=== PATIENT | male | born 1965 | race Caucasian/White ===

== ENCOUNTER 2020-12-06 17:22 | Emergency (ER) | payer MEDICAID, SELFPAY ==
--- NOTE | 2020-12-06 17:56 | ECG_ITS ---
[facility] Test Date: 2020-12-06 Pat Name: Martín Thorne Department: Room: Gender: Male Caddie: : 1965 Requested By: Martín Weeks Order Number: [id number] [place] MD: Mert Singh M.D. Measurements Intervals Williams Rate: 68 P: 64 GA: 190 QRS: 28 QRSD: 101 T: 44 QT: 344 QTc: 367 Interpretive Statements SINUS RHYTHM Compared to ECG 03/14/2016 22:05:47 No significant changes Electronically Signed On 12-08-2020 8:00:15 CDT by Mert Singh M.D. [id number]
--- NOTE | 2020-12-06 17:56 | XRR_ITS ---
PROCEDURE INFORMATION: Exam: XR Chest Exam date and time: 12/06/2020 6:17 PM Age: 55 years old Clinical indication: Chest pain; Additional info: Cp TECHNIQUE: Imaging protocol: XR of the chest. Views: 1 view. COMPARISON: CT chest w con* [id number] 05/14/2018 10:04 AM FINDINGS: Lungs: Minimal left basilar atelectasis. The lungs are otherwise clear. Pleural spaces: Unremarkable. No pleural effusion. No pneumothorax. Heart/Mediastinum: The cardiac shadow is normal in size. Bones/joints: No acute abnormality. XR/XR chest 1V portable [id number] IMPRESSION: Minimal left basilar atelectasis.
--- NOTE | 2020-12-06 18:00 | ED_ITS ---
HPI - Chest Pain General: Chief Complaint: Chest Pain Stated Complaint: CHEST PAIN Time Seen by Provider: 12/06/20 17:55 History of Present Illness: HPI narrative: Patient is a 55-year-old male who comes to the ED with chest pain. Patient says chest pain started today several hours ago while at rest. Says the chest pain radiates up into his neck bilaterally. Denies any previous chest pain episodes. Patient did say that he was getting stressed out today and is not sure if that could have been the cause. Patient says he has not taken any aspirin before coming to the ED. Denies any shortness of breath, nausea/vomiting, fever, chills, abdominal pain, bladder or bowel symptoms. Patient does also have some dental pain due to bad teeth on the right side upper and lower molars. Associated symptoms: Deny abdominal pain, dyspnea, fever(s), nausea, palpitations or vomiting Review of Systems Const: Denies: fever(s), chills or fatigue Eyes: Denies: change in vision or eye discomfort ENMT: Reports: dental pain (Right side upper and lower molars); Denies: throat pain, odynophagia, nasal discharge or nasal congestion Card: Reports: chest pain; Denies: palpitations, edema, swelling of feet/ankles, dyspnea on exertion or orthopnea Resp: Denies: dyspnea, productive cough or non-productive cough GI: Denies: abdominal pain, nausea, vomiting, diarrhea, constipation or h ematochezia : Denies: flank pain, difficulty urinating, dysuria or hematuria Musc: Denies: neck pain, back pain or extremity swelling Skin/Breast: Denies: rash or new lesions Neuro: Denies: headache(s), numbness in extremities or weakness in extremities Physical Exam Const: COMMON NORMALS: no acute distress, patient oriented x3, healthy appearing and alert GENERAL APPEARANCE: cooperative and comfortable HENMT: COMMON NORMALS: normocephalic HEAD & SCALP: normocephalic MOUTH: Normal oral and palatal mucosa present TEETH & GINGIVA: Yes caries (Multiple dental caries-extensive caries on tooth #3 tooth #30) and Yes poor dentition THROAT: posterior oropharynx normal and uvula midline Eye: COMMON NORMALS: Equal, round and reactive pupils present PUPIL: Yes Equal, round and reactive pupils present Neck/C-Spine: COMMON NORMALS: supple GENERAL: Yes normal visual inspection Resp: COMMON NORMALS: normal respiratory effort, No retractions, No use of accessory muscles and clear to auscultation bilaterally AUSCULTATION: clear to auscultation bilaterally Cardio: COMMON NORMALS: regular rate, regular rhythm, S1 normal heart sound present, S2 normal heart sound present, No gallops present (Cardio), No clicks present (Cardio), No murmurs present (Cardio) and Peripheral pulses 2+ throughout RATE: regular rate RHYTHM: regular rhythm HEART SOUNDS: S1 normal heart sound present and S2 normal heart sound present PERIPHERAL PULSES: Peripheral pulses 2+ throughout GI: COMMON NORMALS: Normal to inspection, nondistended, normoactive bowel sounds present, Soft to palpation, non-tender and no masses PALPATION: Yes Soft to palpation : COMMON NORMALS: Yes no CVA tenderness BLADDER/KIDNEY EXAM: Yes no CVA tenderness Back/Pelvis: COMMON NORMALS: no CVA tenderness Extremity: COMMON NORMALS: normal to inspection Neuro: COMMON NORMALS: patient oriented x3 and moves all extremities SENSORIUM/ORIENTATION: Yes alert Skin: GENERAL SKIN EXAM: dry skin Course ED course: Heart score 2- Low risk Vital Signs: Vital signs: Vital Signs Temperature 98.7 F 12/06/20 21:17 Pulse Rate 72 12/06/20 21:17 Respiratory Rate 16 12/06/20 21:17 Blood Pressure 138/65 12/06/20 21:17 Pulse Oximetry 97 12/06/20 21:17 MDM - Chest Pain MDM Narrative: Medical decision making narrative: Patient is a 55-year-old male comes to the ED with chest pain and dental pain. Exam showed a nontoxic appearing patient with poor dental hygiene and multiple dental caries. Rest of exam is benign. CBC and CMP were unremarkable. Troponin negative. BNP 49. EKG showed normal sinus rhythm with no ST segment elevation or depression seen. Chest x-ray showed no acute findings. Heart score of 2. Patient was given dose of aspirin, hydrocodone and symptoms resolved. Patient was also given dose of clindamycin as well for his dental pain. Patient diagnosed with noncardiac chest pain and dental pain due to dental caries. He was sent home with a prescription for clindamycin. Patient has a dental appointment on December 14. Return to ED precautions given. Patient understood and agreed with plan. Lab Data: Attestation: I reviewed the patient's lab results. Labs: Lab Results 12/06/20 12/06/20 12/06/20 Range/Units 18:24 18:24 18:24 WBC 7.6 (4.0-10.0) 10^3/ uL RBC 4.76 (4.1-5.3) 10^6/u L Hgb 14.4 (11.7-16.6) g/dL Hct 42.7 (42.0-52.0) % MCV 89.7 (80-94) fL MCH 30.3 (28.0-34.0) pg MCHC 33.7 (30.0-36.0) g/dL RDW 13.1 (12.1-15.1) % Plt Count 238 (130-400) 10^3/c mm MPV 9.6 (7.4-10.4) fL Neut % (Auto) 50.6 % Lymph % (Auto) 37.1 % Hartley % (Auto) 9.7 % Eos % (Auto) 1.6 % Baso % (Auto) 0.7 % Neut # (Auto) 3.87 (1.8-7.7) 10^3/u L Lymph # (Auto) 2.8 (0.8-4.8) 10^3/u L Hartley # (Auto) 0.7 (0.2-0.9) 10^3/u L Eos # (Auto) 0.1 (0.0-0.8) 10^3/u L Baso # (Auto) 0.1 (0.0-0.1) 10^3/u L Nucleated RBC % (a uto) 0 % Nucleated RBCs # 0.0 /100WBC Sodium 140 (136-145) mmol/L Potassium 4.2 (3.5-5.1) mmol/L Chloride 104 (98-107) mmol/L Carbon Dioxide 26 (22-29) mmol/L Anion Gap 14.2 (5-19) BUN 16 (6-20) mg/dL Creatinine 0.8 (0.7-1.2) mg/dL GFR Calculation 99.6 (90-130) mL/min Glucose 89 (65-115) mg/dL Calculated Osmolal ity 291 (285-295) mOsm/k g Calcium 8.7 (8.5-10.5) mg/dL Total Bilirubin 0.2 (0.15-1.2) mg/dL AST 14 (0-40) U/L ALT 11 (0-41) U/L Alkaline Phosphata se 115 (40-130) IU/L Troponin T Baselin e 6 (0-15) ng/L Troponin T 120 Min onofre (0-15) ng/L Delta Troponin T (0-10) ABS# NT-Pro-B Natriuret Pep 49 (0-125) pg/mL Total Protein 6.8 (6.6-8.7) g/dL Albumin 4.4 (3.5-5.2) g/dL Globulin 2.4 (1.3-4.6) g/dL 12/06/20 Range/Units 20:00 WBC (4.0-10.0) 10^3/ uL RBC (4.1-5.3) 10^6/u L Hgb (11.7-16.6) g/dL Hct (42.0-52.0) % MCV (80-94) fL MCH (28.0-34.0) pg MCHC (30.0-36.0) g/dL RDW (12.1-15.1) % Plt Count (130-400) 10^3/c mm MPV (7.4-10.4) fL Neut % (Auto) % Lymph % (Auto) % Hartley % (Auto) % Eos % (Auto) % Baso % (Auto) % Neut # (Auto) (1.8-7.7) 10^3/u L Lymph # (Auto) (0.8-4.8) 10^3/u L Hartley # (Auto) (0.2-0.9) 10^3/u L Eos # (Auto) (0.0-0.8) 10^3/u L Baso # (Auto) (0.0-0.1) 10^3/u L Nucleated RBC % (a uto) % Nucleated RBCs # /100WBC Sodium (136-145) mmol/L Potassium (3.5-5.1) mmol/L Chloride (98-107) mmol/L Carbon Dioxide (22-29) mmol/L Anion Gap (5-19) BUN (6-20) mg/dL Creatinine (0.7-1.2) mg/dL GFR Calculation (90-130) mL/min Glucose (65-115) mg/dL Calculated Osmolal ity (285-295) mOsm/k g Calcium (8.5-10.5) mg/dL Total Bilirubin (0.15-1.2) mg/dL AST (0-40) U/L ALT (0-41) U/L Alkaline Phosphata se (40-130) IU/L Troponin T Baselin e (0-15) ng/L Troponin T 120 Min onofre 6.13 (0-15) ng/L Delta Troponin T 0.13 (0-10) ABS# NT-Pro-B Natriuret Pep (0-125) pg/mL Total Protein (6.6-8.7) g/dL Albumin (3.5-5.2) g/dL Globulin (1.3-4.6) g/dL Imaging Data^: CXR: Attestation: I personally reviewed and interpreted this imaging study as fol lows: Radiologist's impression: [email or web address] [id number] XRay Report Signed Patient: Martín Thorne Unit #: [id number] : 1965 Age/Sex: 55 / M ADM Date: 12/06/20 Loc: ER Room/Bed: Attending Dr: Ordering Provider/Ordering MD: Martín Weeks Date of Service: 12/06/20 Procedure(s): XR chest 1V portable [id number] Accession Number(s): [id number] Report Number: [id number] PROCEDURE INFORMATION: Exam: XR Chest Exam date and time: 12/06/2020 6:17 PM Age: 55 years old Clinical indication: Chest pain; Additional info: Cp TECHNIQUE: Imaging protocol: XR of the chest. Views: 1 view. COMPARISON: CT chest w con* [id number] 05/14/2018 10:04 AM FINDINGS: Lungs: Minimal left basilar atelectasis. The lungs are otherwise clear. Pleural spaces: Unremarkable. No pleural effusion. No pneumothorax. Heart/Mediastinum: The cardiac shadow is normal in size. Bones/joints: No acute abnormality. XR/XR chest 1V portable [id number] IMPRESSION: Minimal left basilar atelectasis. Dictated By: Tyshawn Whipple Signed By: Tyshawn Whipple Signed Date/Time: 0 12/06/201853 DD/ 52 EKG Data^: EKG 1: Attestation: I personally reviewed and interpreted this EKG as follows: EKG interpretation date: 12/06/20 EKG interpretation time: 18:01 Interpretation: Normal sinus rhythm, 68 bpm, no ST segment elevation or depression seen. Discharge Plan Discharge Patient Disposition: Home Clinical Impression: Non-cardiac chest pain, Pain due to dental caries Condition: Stable Prescriptions: New clindamycin HCl 150 mg capsule 300 mg PO QID 7 Days Qty: 56 RF: 0 No Action levothyroxine 75 mcg tablet 75 mcg PO QAM RF: 0 gabapentin 800 mg tablet 800 mg PO TID RF: 0 trazodone 100 mg tablet 100 mg PO BEDTIME RF: 0 simvastatin 20 mg tablet 20 mg PO QAM RF: 0 mirtazapine 30 mg tablet 30 mg PO BEDTIME RF: 0 Discharge Orders: Discharge ED (Routine); Ordered 12/06/20 Ordered By: Martín Weeks Referrals: Georgette Lira DO [Primary Care Provider] - Discharge Diet: Regular Discharge Activity: Resume usual activity Patient Instructions: Dental Caries (ED), Noncardiac Chest Pain (ED) Activity Restrictions/Additional Instructions: Follow-up with medical provider as directed. Go to your scheduled dental appointment on December 14 to address dental pain issue. Take [id number] Tylenol or ibuprofen per bottle instructions for pain. Return to the ER or your medical provider if condition worsens. Please read and understand discharge instructions. Thank you for choosing [facility] for your healthcare needs today. Please realize this is an emergency room and that we are providing you with a medical screening exam and this may not be complete and all inclusive of all the testing and or work up that you may need to determine your ailment or severity of your illness. It is very important that you follow up as instructed or that you return to the Emergency Department should you have concerns or if your condition changes or worsens in any way. Coding Level of Care Code ED Mixing Machine Attendant for Chg Fwd Exam Comprehensive
[2020-12-06] MEDS: nicotine 21 mg Patch 1 PATCH TRANSDERMA (18:29)
[2020-12-06] MEDS: aspirin 81 mg Chew Tablet 324 MG PO (18:29)
[2020-12-06 18:30] LABS: Basophils # 0.1 10^3/uL (0.0-0.1); Basophils % 0.7 %; Eosinophils # 0.1 10^3/uL (0.0-0.8); Eosinophils % 1.6 %; Hematocrit 42.7 % (42.0-52.0); Hemoglobin 14.4 g/dL (11.7-16.6); Lymphocytes # 2.8 10^3/uL (0.8-4.8); Lymphocytes % 37.1 %; Mean Corpuscular HGB Conc 33.7 g/dL (30.0-36.0); Mean Corpuscular Hemoglobin 30.3 pg (28.0-34.0); Mean Corpuscular Volume 89.7 fL (80-94); Mean Platelet Volume 9.6 fL (7.4-10.4); Monocytes # 0.7 10^3/uL (0.2-0.9); Monocytes % 9.7 %; Neutrophils # 3.87 10^3/uL (1.8-7.7); Neutrophils % 50.6 %; Nucleated Red Blood Cells % 0 %; Platelet Count 238 10^3/cmm (130-400); Red Blood Count 4.76 10^6/uL (4.1-5.3); Red Cell Distribution Width 13.1 % (12.1-15.1); White Blood Count 7.6 10^3/uL (4.0-10.0)
--- NOTE | 2020-12-06 18:30 | PC.PHAR ---
pt states he gets the medications entered in long term-the copy and print associate with him states he is unsure what medications the pt takes
[2020-12-06 18:37] VITALS: BP 112/87; PULSE 70; RESP 18; O2SAT 96; BMI 28.1
[2020-12-06 18:53] LABS: Troponin(5th) Baseline 6 ng/L (0-15)
[2020-12-06 19:02] LABS: Alanine Aminotransferase 11 U/L (0-41); Albumin Level 4.4 g/dL (3.5-5.2); Alkaline Phosphatase 115 IU/L (40-130); Anion Gap 14.2 (5-19); Aspartate Amino Transferase 14 U/L (0-40); Blood Urea Nitrogen 16 mg/dL (6-20); Calcium 8.7 mg/dL (8.5-10.5); Carbon Dioxide 26 mmol/L (22-29); Chloride 104 mmol/L (98-107); Globulin 2.4 g/dL (1.3-4.6); Glomerular Filtration Rate 99.6 mL/min (90-130); Glucose 89 mg/dL (65-115); NT Pro B Type Natriuretic Pept 49 pg/mL (0-125); Osmolality Calculated 291 mOsm/kg (285-295); Potassium 4.2 mmol/L (3.5-5.1); Sodium 140 mmol/L (136-145); Total Bilirubin 0.2 mg/dL (0.15-1.2); Total Protein 6.8 g/dL (6.6-8.7)
[2020-12-06 20:29] LABS: Troponin 5 2HR 6.13 ng/L (0-15); Troponin 5 2HR Delta 0.13 ABS# (0-10)
[2020-12-06] MEDS: clindamycin 150 mg Capsule 300 MG PO (20:36)
[2020-12-06] MEDS: HYDROcodone-acetaminophen 5-325 mg Tablet 1 TAB PO (20:39)
[2020-12-06 20:43] VITALS: BP 146/98; PULSE 63; PULSE 69; RESP 16; TEMP 36.4; O2SAT 97
[2020-12-06 21:17] VITALS: BP 138/65; PULSE 72; RESP 16; TEMP 37.1; O2SAT 97
== END 2020-12-06 21:15 | disposition home or self-care (01) ==
PROVIDERS: Emergency Provider Physician Assistant; PCP Family Medicine
DX: R07.89 Other chest pain (principal); K02.9 Dental caries, unspecified
CPT/HCPCS: 36415; 71045; 80053; 83880; 84484; 85025; 93005; 99284

== ENCOUNTER 2023-05-18 14:54 | Emergency (ER) | payer MEDICAID, SELFPAY ==
[2023-05-18 15:03] VITALS: BP 120/74; PULSE 79; RESP 17; TEMP 36.5; O2SAT 95; BMI 27.9
--- NOTE | 2023-05-18 15:14 | ED_ITS ---
HPI - Dental/Oral General: Chief complaint: Dental/Oral Stated complaint: teeth hurt Time Seen by Provider: 05/18/23 15:10 History of Present Illness: 57-year-old male patient comes in today for complaints of left upper dental pain. Patient reports a loose tooth and multiple caries. Over the last 2 to 3 days he has had worsening pain and discomfort and unable to sleep at night. Patient appears nontoxic. Patient does take mirtazapine and levothyroxine routinely. Review of Systems General: Reports: 10 or more systems reviewed and unremarkable except in HPI and below ENMT: Reports: dental pain Card: Denies: chest pain Resp: Denies: dyspnea Musc: Denies: neck pain or back pain PFS ED PFSH: Medical History (Updated 05/18/23 @ 15:21 by CHUCHO Salgado) Anxiety Chronic leg pain Depression Fatigue High cholesterol History of hepatitis C Hypothyroid Mechanical complication internal fixation device like nail, plate, jennifer Psychiatric care Family History (Updated 05/16/23 @ 14:59 by Cinda Mckeon LPN) Father Bladder cancer Mother Leukemia Social History (Updated 05/16/23 @ 15:00 by Cinda Mckeon LPN) Smoking and tobacco/nicotine status: current every day tobacco/nicotine user Quit status (tobacco/nicotine): not considering quitting Second hand smoke exposure: No Alcohol intake: former Substance/Drug Use: former Physical Exam Const: COMMON NORMALS: alert HENMT: COMMON NORMALS: normocephalic HEAD & SCALP: normocephalic MOUTH: other (Port dentition, multiple caries, loose teeth) TEETH & GINGIVA: Yes abnormal tooth and associated gingiva (Redness of the gingiva and loose tooth cuspid left upper), Yes caries and Yes poor dentition Neck/C-Spine: COMMON NORMALS: full ROM Resp: COMMON NORMALS: normal respiratory effort Extremity: COMMON NORMALS: normal to inspection Neuro: SENSORIUM/ORIENTATION: Yes alert Skin: COMMON NORMALS: turgor normal GENERAL SKIN EXAM: turgor normal Course Vital Signs: Vital signs: Vital Signs Temperature 97.7 F 05/18/23 15:03 Pulse Rate 77 05/18/23 15:23 Respiratory Rate 18 05/18/23 15:23 Blood Pressure 124/85 05/18/23 15:23 Pulse Oximetry 95 05/18/23 15:23 Oxygen Delivery Me thod Room Air 05/18/23 15:23 MDM - Dental/Oral Medical Decision Making 57-year-old male patient comes in today with dental pain. On exam patient has multiple decayed and loose teeth. Patient reports a cuspid in the left upper jaw that is loose with surrounding gingival erythema and swelling. Differential diagnosis includes dental abscess, dental carry, dental pain, malingering, retropharyngeal abscess. No signs of serious illness or injury is noted. Posterior pharynx is normal. Vital signs are normal. Reviewed exam with patient with recommendations for treatment and follow-up. Patient reported understanding and agreed to plan. Patient was strongly encouraged to follow-up with dentist for definitive care. No radiology studies performed this visit Discharge Plan Discharge Patient Disposition: Home Clinical Impression: Toothache, Dental caries Condition: Stable Prescriptions: New clindamycin HCl 300 mg capsule 300 mg PO Q6H 7 Days Qty: 28 0RF hydrocodone-acetaminophen 5-325 mg tablet 1 tab PO Q8H PRN (Reason: pain (scale score 7-10)) Qty: 7 0RF No Action gabapentin 300 mg capsule 300 mg PO TID Qty: 90 1RF mirtazapine 30 mg tablet 30 mg PO .q hs Qty: 30 1RF levothyroxine 75 mcg tablet 75 mcg PO QAM simvastatin 20 mg tablet 20 mg PO QAM Discharge Orders: Discharge ED (Routine); Ordered 05/18/23 Ordered By: Tanner Steinberg Referrals: Georgette Lira DO [Primary Care Provider] - Discharge Diet: Usual diet Discharge Activity: Increase activity as tolerated Patient Instructions: Toothache (ED), Opioid Safety Activity Restrictions/Additional Instructions: Home and rest. Take medications as directed. Follow-up with dentist for definitive care. Use acetaminophen and ibuprofen for control of pain. Use hydrocodone for severe pain. Return to ER for new concerns. Coding Level of Care Code ED Clerical Secretary for Shannan Shelton
[2023-05-18 15:23] VITALS: BP 124/85; PULSE 77; RESP 18; O2SAT 95
[2023-05-18 15:35] VITALS: BP 124/85; PULSE 77; RESP 18; O2SAT 95
== END 2023-05-18 15:37 | disposition home or self-care (01) ==
PROVIDERS: Emergency Provider Nurse Practitioner Family; PCP Family Medicine
DX: K02.9 Dental caries, unspecified (principal); K08.89 Other specified disorders of teeth and supporting structures; Z86.19 Personal history of other infectious and parasitic diseases; F17.210 Nicotine dependence, cigarettes, uncomplicated
CPT/HCPCS: 99283

== ENCOUNTER → 2023-06-05 14:34 | Outpatient (BNVA) | payer MEDICAID, SELFPAY | PROVIDERS: PCP Family Medicine; Visit Provider Psychiatry & Neurology Psychiatry | DX: F11.20 Opioid dependence, uncomplicated (principal); Z79.899 Other long term (current) drug therapy | CPT/HCPCS: 80307 ==

== ENCOUNTER → 2023-07-04 13:32 | Outpatient (BNVA) | payer MEDICAID, SELFPAY | PROVIDERS: PCP Family Medicine; Visit Provider Family Medicine Adult Medicine | DX: Z00.00 Encounter for general adult medical examination without abnormal findings (principal); Z86.19 Personal history of other infectious and parasitic diseases; E03.9 Hypothyroidism, unspecified; F41.9 Anxiety disorder, unspecified; F32.A Depression, unspecified; R25.1 Tremor, unspecified; E78.00 Pure hypercholesterolemia, unspecified; M79.606 Pain in leg, unspecified; G89.29 Other chronic pain; F13.21 Sedative, hypnotic or anxiolytic dependence, in remission; F33.2 Major depressive disorder, recurrent severe without psychotic features | CPT/HCPCS: 80053; 84443; 85025; G0103 ==

== ENCOUNTER → 2023-07-09 15:41 | Outpatient (BNVA) | payer MEDICAID, SELFPAY | PROVIDERS: PCP Family Medicine; Visit Provider Psychiatry & Neurology Psychiatry | DX: F32.A Depression, unspecified (principal); Z79.899 Other long term (current) drug therapy; F11.20 Opioid dependence, uncomplicated; F15.21 Other stimulant dependence, in remission | CPT/HCPCS: 80307 ==

== ENCOUNTER → 2023-08-08 15:24 | Outpatient (BNVA) | payer MEDICAID, SELFPAY | PROVIDERS: PCP Family Medicine; Visit Provider Psychiatry & Neurology Psychiatry | DX: F11.20 Opioid dependence, uncomplicated (principal); Z79.899 Other long term (current) drug therapy; F13.21 Sedative, hypnotic or anxiolytic dependence, in remission; F15.21 Other stimulant dependence, in remission; F12.20 Cannabis dependence, uncomplicated | CPT/HCPCS: 80307 ==

== ENCOUNTER → 2023-09-05 15:01 | Outpatient (BNVA) | payer MEDICAID, SELFPAY | PROVIDERS: PCP Family Medicine; Visit Provider Psychiatry & Neurology Psychiatry | DX: F11.20 Opioid dependence, uncomplicated (principal); Z79.899 Other long term (current) drug therapy; F13.21 Sedative, hypnotic or anxiolytic dependence, in remission; F15.21 Other stimulant dependence, in remission; F12.20 Cannabis dependence, uncomplicated; F32.A Depression, unspecified; F41.1 Generalized anxiety disorder; F33.2 Major depressive disorder, recurrent severe without psychotic features | CPT/HCPCS: 80307 ==

== ENCOUNTER 2023-09-14 13:16 | Outpatient (CLI) | payer MEDICAID, SELFPAY ==
--- NOTE | 2023-09-14 13:27 | CT_ITS ---
WS: [id number] LDCT LUNG CANCER SCREENING HISTORY: HX OF TOBACCO USE/NICOTINE DEPENDENCE,CIGARETTES TECHNIQUE: Axial imaging performed from the apices to 1 cm below the costophrenic angles. Coronal and sagittal reformats are submitted with axial MIP series. All CT scans at [facility] use at least one of these dose optimization techniques: automated exposure control; mA and/or kV adjustment per patient size (includes targeted exams where dose is matched to clinical indication); or iterativ e reconstruction. DLP: 75.57 mGy.cm DIvol: Mean CTDIvol: 1.40 (mGy) COMPARISON: None available. Diagnostic quality: Satisfactory Lungs: Less than 3 mm noncalcified nodule RIGHT apex. Less than 3 mm nodule, image 136 series 4 on th e LEFT. Additional 4 mm nodule in the anterior RIGHT upper lobe, image 139 series 4. Very thin linear atelectasis or scar at the LEFT costophrenic angle. No endobronchial lesions. Heart: Normal size heart with no pericardial effusion.. Other findings: No mediastinal or hilar adenopathy. Normal size aorta. Small hiatal hernia. No adrena l mass. Mild increase severe compression deformity of what I believe is T5 or T6. No retropulsion. Th is does not appear acute. IMPRESSION: CT/CT lung screening [id number] LUNG-RADS: 2-Benign Appearance or Behavior FOLLOW UP: 12 Month: Continue annual screening with LDCT OTHER FINDINGS (S MODIFIER): None.
== END 2023-09-14 13:17 | disposition home or self-care (01) ==
LOC: RAD 13:17
PROVIDERS: PCP Nurse Practitioner Family; Visit Provider Nurse Practitioner Family
DX: Z12.2 Encounter for screening for malignant neoplasm of respiratory organs (principal); Z87.891 Personal history of nicotine dependence; R91.8 Other nonspecific abnormal finding of lung field
CPT/HCPCS: 71271

== ENCOUNTER → 2023-10-02 15:12 | Outpatient (BNVA) | payer MEDICAID, SELFPAY | PROVIDERS: PCP Family Medicine; Visit Provider Psychiatry & Neurology Psychiatry | DX: F11.20 Opioid dependence, uncomplicated (principal); F12.20 Cannabis dependence, uncomplicated; F15.21 Other stimulant dependence, in remission; Z79.899 Other long term (current) drug therapy; F33.2 Major depressive disorder, recurrent severe without psychotic features; F41.1 Generalized anxiety disorder; F13.21 Sedative, hypnotic or anxiolytic dependence, in remission | CPT/HCPCS: 80307 ==

== ENCOUNTER → 2023-11-15 15:07 | Outpatient (BNVA) | payer MEDICAID, SELFPAY | PROVIDERS: PCP Family Medicine; Visit Provider Psychiatry & Neurology Psychiatry | DX: F32.A Depression, unspecified (principal); F11.20 Opioid dependence, uncomplicated; F12.20 Cannabis dependence, uncomplicated; F15.21 Other stimulant dependence, in remission; F13.21 Sedative, hypnotic or anxiolytic dependence, in remission; Z79.899 Other long term (current) drug therapy; F41.1 Generalized anxiety disorder; F33.2 Major depressive disorder, recurrent severe without psychotic features | CPT/HCPCS: 80053; 80164; 80307; 84443; 85025 ==

== ENCOUNTER → 2024-01-09 10:09 | Outpatient (BNVA) | payer OTHER, SELFPAY | PROVIDERS: PCP Family Medicine; Visit Provider Psychiatry & Neurology Psychiatry | DX: F41.9 Anxiety disorder, unspecified (principal); F33.2 Major depressive disorder, recurrent severe without psychotic features; Z79.899 Other long term (current) drug therapy | CPT/HCPCS: 80061; 83036 ==

== ENCOUNTER 2024-02-15 11:13 | Emergency (ER) | payer MEDICAID, SELFPAY ==
[2024-01-17 10:12] VITALS: BP 114/72; BMI 28.8
[2024-02-15 11:21] VITALS: BP 164/73; PULSE 85; RESP 18; TEMP 36.4; O2SAT 95; BMI 28.3
[2024-02-15 12:02] LABS: Basophils % 0.4 %; Eosinophils % 0.2 %; Hematocrit 45.8 % (37-53); Lymphocytes # 1.4 10^3/uL (0.8-4.8); Mean Corpuscular HGB Conc 33.6 g/dL (30-55); Mean Corpuscular Hemoglobin 31.9 pg (27-33); Mean Corpuscular Volume 94.8 fl (82-101); Mean Platelet Volume 9.9 fL (7.4-10.4); Monocytes # 0.4 10^3/uL (0.2-0.9); Monocytes % 9.5 %; Neutrophils # 2.71 10^3/uL (1.8-7.7); Neutrophils % 58.7 %; Nucleated Red Blood Cells % 0 %; Platelet Count 193 10^3/cmm (157-399); Red Blood Count 4.83 10^6/uL (3.85-5.65); Red Cell Distribution Width 13.2 % (12.1-15.1); White Blood Count 4.62 10^3/uL (3.29-11.43)
[2024-02-15 12:19] LABS: Alanine Aminotransferase 11 U/L (0-41); Albumin Level 4.3 g/dL (3.5-5.2); Alkaline Phosphatase 95 U/L (40-130); Anion Gap 14.7 (5-19); Aspartate Amino Transferase 16 U/L (0-40); Blood Urea Nitrogen 19 mg/dL (8-23); Calcium 9.2 mg/dL (8.5-10.5); Carbon Dioxide 25 mmol/L (22-29); Chloride 105 mmol/L (98-107); Creatinine Clr Calc Pharmacy 122.6286; Globulin 3.3 g/dL (1.3-4.6); Glucose 110 mg/dL (65-115); Lipase 14 U/L (13-60); Osmolality Calculated 293 mOsm/kg (285-295); Potassium 4.7 mmol/L (3.5-5.1); Sodium 140 mmol/L (136-145); Total Bilirubin 0.2 mg/dL (0.15-1.2); Total Protein 7.6 g/dL (6.6-8.7)
--- NOTE | 2024-02-15 12:39 | W.ED.ABDPA2 ---
HPI - Abdominal Pain General: Chief Complaint: Abdominal Pain Stated Complaint: N/V, low abd pain Time Seen by Provider: 02/15/24 11:23 Source: patient Mode of arrival: ambulatory Limitations: no limitations History of Present Illness: Patient is a 58-year-old male who presents to ED today with a complaint of feeling nauseous and decreased appetite over the past 3 to 5 days. Patient states he has not had any vomiting. He states he just does not have an appetite to eat much. He attributes this to increased stress. He states occasionally he will have what he describes as spasms to the right side of his abdomen. No previous abdominal surgeries. He is reporting normal bowel movements. He is not complaining of dysuria, frequency, urgency, or hematuria. No flank pain. MD elicited complaint: abdominal pain and other (nausea, decreased appetite ) Pertinent past history: other (hepatitis C) Onset (ago): day(s) Pain Consistency: intermittent Location: RUQ and RLQ Severity: mild Quality: other (spasming) Radiation: none Migration to: no migration Exacerbating factors: other (he thinks stress) Relieving factors: nothing Associated Symptoms: Reports nausea; Denies change in bowel habits, chills, diarrhea, dysuria, fever(s), hematochezia, hematuria, hematemesis, melena and vomiting Review of Systems Const: Denies: fever(s), chills, body aches, fatigue or malaise Eyes: Denies: yellow eyes ENMT: Denies: throat pain, odynophagia or hoarseness Card: Denies: chest pain Resp: Denies: dyspnea GI: Reports: abdominal pain and nausea; Denies: vomiting, hematemesis, diarrhea, change in bowel habits, hematochezia or melena : Denies: flank pain, dysuria or hematuria Musc: Denies: back pain or extremity pain Skin/Breast: Denies: rash Neuro: Denies: headache(s), dizziness or confusion PFSH ED PFSH: Medical History Shakiness Healthcare maintenance Severe benzodiazepine use disorder in sustained remission Dental caries History of hepatitis C High cholesterol Depression Anxiety Fatigue Hypothyroid Chronic leg pain Mechanical complication internal fixation device like nail, plate, jennifer Psychiatric care Pain due to dental caries Family History Father Bladder cancer Mother Leukemia Social History Smoking and tobacco/nicotine status: current every day tobacco/nicotine user Quit status (tobacco/nicotine): not considering quitting Second hand smoke exposure: No Alcohol intake: former Substance/Drug Use: former Adopted: No Caregiver/support person: No Lives independently: Yes Housing: Apartment Marital status: Number of children: 1 Number of grandchildren: 0 Highest education level completed: GED or Equivalent service: No Current occupational status: disabled Pets and animals: No Leisure activites: other Leisure activities details: work out and watch TV Sexually active: No Do you think of yourself as: Straight/Heterosexual Current gender identity: Male Estella/Religious: [employer] Special estella needs: No Agree to transfusion: Yes Physical Exam Const: COMMON NORMALS: no acute distress, patient oriented x3, no limitations, alert and well nourished GENERAL APPEARANCE: cooperative ORIENTATION/CONSCIOUSNESS: Yes awake, Yes oriented to person, Yes oriented to place and Yes oriented to time Eye: COMMON NORMALS: no scleral icterus Resp: COMMON NORMALS: normal respiratory effort Cardio: COMMON NORMALS: regular rate and regular rhythm RATE: regular rate RHYTHM: regular rhythm GI: COMMON NORMALS: Normal to inspection, nondistended, normoactive bowel sounds present, Soft to palpation, non-tender, No hepatosplenomegaly present and no masses INSPECTION: Yes normal to inspection AUSCULTATION: Yes normoactive bowel sounds PALPATION: Yes Soft to palpation, No Tenderness to palpation present (GI), No Guarding due to palpation present (GI), No Rigid due to palpation and Yes No hepatosplenomegaly present : COMMON NORMALS: Yes no CVA tenderness BLADDER/KIDNEY EXAM: Yes no CVA tenderness Back/Pelvis: COMMON NORMALS: no CVA tenderness and thoracic and lumbar spine normal to inspection Extremity: GENERAL: Yes normal exam except as noted Neuro: HCRISTA COMA SCALE: document GCS findings Christa coma scale eye opening: Spontaneous Christa coma scale verbal response: Orientated [place] coma scale motor response: Obey commands Christa coma scale total score: 15 COMMON NORMALS: patient oriented x3, moves all extremities, no focal motor deficits and no sensory deficits noted SENSORIUM/ORIENTATION: Yes alert, Yes oriented to person, Yes oriented to place and Yes oriented to time Skin: COMMON NORMALS: no rashes or lesions noted GENERAL SKIN EXAM: no rashes or lesions noted Course Vital Signs: Vital signs: Vital Signs Temperature 97.6 F 02/15/24 11:21 Pulse Rate 65 02/15/24 13:30 Respiratory Rate 18 02/15/24 11:21 Blood Pressure 121/71 02/15/24 13:30 Pulse Oximetry 97 02/15/24 13:30 Oxygen Delivery Me thod Room Air 02/15/24 13:30 MDM - Abdominal Pain Medical Decision Making Patient appears in no acute distress. His vital signs are stable. Blood work/urine is completely unremarkable. CT scan showing no acute abnormality. He will be allowed discharge with return precautions. Otherwise I would like him to follow up with primary care. Differential Diagnosis Likely abdominal pain, acute appendicitis, constipation, diverticulitis, gastroenteritis and pancreatitis Medical Records I reviewed the patient's medical records. Lab Data I reviewed the patient's lab results. 02/15/24 11:57 02/15/24 11:57 Labs/Radiology: Radiology Impressions Abdomen/Pelvis CT 02/15/24 12:48 IMPRESSION: No acute subdiaphragmatic pathology. Laboratory Results WBC 4.62 10^3/uL (3.29-11.43) 02/15/24 11:57 RBC 4.83 10^6/uL (3.85-5.65) 02/15/24 11:57 Hgb 15.40 g/dL (11.27-16.99) 02/15/24 11:57 Hct 45.8 % (37-53) 02/15/24 11:57 MCV 94.8 fl (82-101) 02/15/24 11:57 MCH 31.9 pg (27-33) 02/15/24 11:57 MCHC 33.6 g/dL (30-55) 02/15/24 11:57 RDW 13.2 % (12.1-15.1) 02/15/24 11:57 Plt Count 193 10^3/cmm (157-399) 02/15/24 11:57 MPV 9.9 fL (7.4-10.4) 02/15/24 11:57 Neut % (Auto) 58.7 % 02/15/24 11:57 Lymph % (Auto) 31.0 % 02/15/24 11:57 Mitchell % (Auto) 9.5 % 02/15/24 11:57 Eos % (Auto) 0.2 % 02/15/24 11:57 Baso % (Auto) 0.4 % 02/15/24 11:57 Neut # (Auto) 2.71 10^3/uL (1.8-7.7) 02/15/24 11:57 Lymph # (Auto) 1.4 10^3/uL (0.8-4.8) 02/15/24 11:57 Mitchell # (Auto) 0.4 10^3/uL (0.2-0.9) 02/15/24 11:57 Eos # (Auto) 0.0 10^3/uL (0.0-0.8) 02/15/24 11:57 Baso # (Auto) 0.0 10^3/uL (0.0-0.1) 02/15/24 11:57 Nucleated RBC % (auto) 0 % 02/15/24 11:57 Nucleated RBCs # 0.0 /100WBC 02/15/24 11:57 Sodium 140 mmol/L (136-145) 02/15/24 11:57 Potassium 4.7 mmol/L (3.5-5.1) 02/15/24 11:57 Chloride 105 mmol/L (98-107) 02/15/24 11:57 Carbon Dioxide 25 mmol/L (22-29) 02/15/24 11:57 Anion Gap 14.7 (5-19) 02/15/24 11:57 BUN 19 mg/dL (8-23) 02/15/24 11:57 Creatinine 0.7 mg/dL (0.7-1.2) 02/15/24 11:57 GFR Calculation 115.0 mL/min (90-130) 02/15/24 11:57 Glucose 110 mg/dL (65-115) 02/15/24 11:57 Calculated Osmolality 293 mOsm/kg (285-295) 02/15/24 11:57 Calcium 9.2 mg/dL (8.5-10.5) 02/15/24 11:57 Total Bilirubin 0.2 mg/dL (0.15-1.2) 02/15/24 11:57 AST 16 U/L (0-40) 02/15/24 11:57 ALT 11 U/L (0-41) 02/15/24 11:57 Alkaline Phosphatase 95 U/L (40-130) 02/15/24 11:57 Total Protein 7.6 g/dL (6.6-8.7) 02/15/24 11:57 Albumin 4.3 g/dL (3.5-5.2) 02/15/24 11:57 Globulin 3.3 g/dL (1.3-4.6) 02/15/24 11:57 Lipase 14 U/L (13-60) 02/15/24 11:57 Urine Color Yellow (Yellow) 02/15/24 12:40 Urine Appearance Clear (CLEAR) 02/15/24 12:40 Urine pH 5 (5-7) 02/15/24 12:40 Ur Specific [place] 1.020 (1.005-1.030) 02/15/24 12:40 Urine Protein Neg (Negative) 02/15/24 12:40 Urine Glucose (UA) Norm (Normal) 02/15/24 12:40 Urine Ketones 1+ (Negative) H 02/15/24 12:40 Urine Blood Neg (Negative) 02/15/24 12:40 Urine Nitrate Negative (Negative) 02/15/24 12:40 Urine Bilirubin Neg (Negative) 02/15/24 12:40 Urine Urobilinogen Neg mg/dL (Negative) 02/15/24 12:40 Ur Leukocyte Esterase Negative (Negative) 02/15/24 12:40 All radiology interpretation(s) finalized by discharge Discharge Plan Discharge Patient Disposition: Home Clinical Impression: Nausea, Decreased appetite Condition: Stable Prescriptions: No Action clonazepam [Klonopin] 0.5 mg tablet 0.5 mg PO BID levothyroxine 75 mcg tablet 75 mcg PO QAM Qty: 90 3RF buprenorphine-naloxone 8-2 mg film 1 film sublingual BID Qty: 60 2RF divalproex [Depakote ER] 500 mg tablet extended release 24 hr 500 mg PO BID Qty: 60 2RF simvastatin 20 mg tablet 20 mg PO QAM gabapentin 600 mg tablet 600 mg PO TID tamsulosin 0.4 mg capsule 0.4 mg PO BEDTIME mirtazapine 30 mg tablet 30 mg PO BEDTIME Discharge Orders: Discharge ED (Routine); Ordered 02/15/24 Ordered By: Vale Morales Referrals: Doc Roy MD [Primary Care Provider] - Activity Restrictions/Additional Instructions: As we discussed I would like you to follow-up with your primary care provider next week if symptoms persist. As we discussed you may return to the emergency department for any new or concerning symptoms. Coding Level of Care Code ED Lcac Operator for Shannan Shelton
--- NOTE | 2024-02-15 12:48 | CTR_ITS ---
PROCEDURE INFORMATION: Exam: CT Abdomen And Pelvis With Contrast Exam date and time: 02/15/2024 1:08 PM Age: 58 years old Clinical indication: Abdominal tenderness and nausea; Abdominal pain; Generalized; Additional info: Abdominal pain, nausea, dec appetite TECHNIQUE: Imaging protocol: Computed tomography of the abdomen and pelvis with contrast. Radiation optimization: All CT scans at this facility use at least one of these dose optimization techniques: automated exposure control; mA and/or kV adjustment per patient size (includes targeted exams where dose is matched to clinical indication); or iterative reconstruction. Contrast material: OMNIPAQUE 350; Contrast volume: 100 ml; Contrast route: INTRAVENOUS (IV); COMPARISON: CR XR hip LT 2-3V wo/w pel* [id number] 10/30/2018 4:28 PM RADIATION DOSE METRICS: Total DLP (mGy-cm): 689.34 FINDINGS: Liver: Normal. No mass. Gallbladder and biliary ducts: Normal. No calcified stones. No ductal dilation. Pancreas: Normal. No ductal dilation. Spleen: Normal. No splenomegaly. Adrenal glands: Normal. No mass. Kidneys and ureters: Nonobstructing left renal calculus. Stomach and bowel: Unremarkable. No obstruction. No mucosal thickening. Appendix: No evidence of appendicitis. Intraperitoneal space: Unremarkable. No free air. No significant fluid collection. Vasculature: Unremarkable. No abdominal aortic aneurysm. Lymph nodes: Unremarkable. No enlarged lymph nodes. Urinary bladder: Unremarkable as visualized. Reproductive: Unremarkable as visualized. Bones/joints: Bilateral L5 spondylolysis with minimal spondylolisthesis. ORIF of each femur. No Soft tissues: Unremarkable. CT/CT abdomen pelvis w con* [id number] IMPRESSION: No acute subdiaphragmatic pathology.
[2024-02-15 12:57] VITALS: BP 115/77; PULSE 75; O2SAT 100
[2024-02-15] MEDS: iohexol 350 mg/mL 500 mL Btl (per mL) IV (13:02)
[2024-02-15] MEDS: ondansetron 2 mg/ML SDV 2 mL 4 MG IVP (13:26)
[2024-02-15 13:28] LABS: Add Urine Microscopic? NO; Charge for UA Resulting for Rev
[2024-02-15 13:30] VITALS: BP 121/71; PULSE 65; O2SAT 97
[2024-02-15 13:59] LABS: Bilirubin Urine Neg (Negative); Blood Urine Neg (Negative); Glucose Urine UA Norm (Normal); Ketones Urine 1+ (Negative); Leukocyte Esterase Urine Negative (Negative); Nitrate Urine Negative (Negative); Protein Urine Neg (Negative); Urine Appearance Clear (CLEAR); Urine Color Yellow (Yellow); Urobilinogen Urine Neg (Negative); pH Urine 5 (5-7)
[2024-02-15 14:17] VITALS: BP 110/66; PULSE 62; O2SAT 96
== END 2024-02-15 14:19 | disposition home or self-care (01) ==
PROVIDERS: Emergency Provider Physician Assistant; PCP Psychiatry & Neurology Psychiatry
DX: R11.0 Nausea (principal); R63.0 Anorexia; Z72.0 Tobacco use; Z86.19 Personal history of other infectious and parasitic diseases
CPT/HCPCS: 36415; 74177; 80053; 81003; 83690; 85025; 96374; 99285; J2405; Q9967

== ENCOUNTER → 2024-04-04 10:19 | Outpatient (BNVA) | payer MEDICAID, SELFPAY ==
[2024-01-17 10:12] VITALS: BP 114/72; BMI 28.8
== END ==
PROVIDERS: PCP Psychiatry & Neurology Psychiatry; Referring Provider Family Medicine; Visit Provider Surgery
DX: R11.0 Nausea (principal); R10.9 Unspecified abdominal pain; Z12.11 Encounter for screening for malignant neoplasm of colon
CPT/HCPCS: 99204

== ENCOUNTER 2024-04-18 07:39 | Outpatient (CLI) | payer MEDICAID, SELFPAY ==
[2024-01-17 10:12] VITALS: BP 114/72; BMI 28.8
--- NOTE | 2024-04-18 08:00 | US_ITS ---
WS: [id number] RIGHT UPPER QUADRANT ULTRASOUND HISTORY: Abdominal pain COMPARISON: 02/22/2017 Liver: 13.9 cm in length. Normal size liver and echogenicity. No bile duct dilatation or mass. Portal Vein: Normal hepatopetal flow with monophasic waveform. Gallbladder: Normally distended gallbladder with no stones or wall thickening. CBD: 0.3 cm Pancreas: Normal size and echogenicity. Right kidney: 9.9 cm in length. Normal size and echogenicity. No hydronephrosis or mass. Aorta and IVC: Unremarkable abdominal aorta and IVC. No ascites. US/US gall bladder [id number] IMPRESSION: Normal right upper quadrant ultrasound.
== END 2024-04-18 07:40 | disposition home or self-care (01) ==
LOC: RAD 07:39
PROVIDERS: PCP Family Medicine; Visit Provider Surgery
DX: R10.11 Right upper quadrant pain (principal)
CPT/HCPCS: 76705

== ENCOUNTER 2024-04-21 09:57 | Outpatient (CLI) | payer MEDICAID, SELFPAY ==
[2024-01-17 10:12] VITALS: BP 114/72; BMI 28.8
--- NOTE | 2024-04-21 10:09 | XR_ITS ---
WS: [id number] LEFT KNEE: 2 VIEW(S) TECHNIQUE: AP and lateral. HISTORY: L KNEE PAIN/EDEMA COMPARISON: 12/23/2018 No fracture or dislocation. Intramedullary jennifer through the femur. The distal jennifer is included on this series. Reidentified is the fracture through the distal locking screw. No joint effusion. No soft tissue abnormality. XR/XR knee LT 1-2V [id number] IMPRESSION: 1. No acute knee fracture. 2. No significant joint space narrowing. 3. Reidentified is the fracture of the distal locking screw associated with th e femoral intramedullary jennifer.
== END 2024-04-21 09:58 | disposition home or self-care (01) ==
LOC: RAD 10:00
PROVIDERS: PCP Family Medicine; Visit Provider Family Medicine
DX: Z02.71 Encounter for disability determination (principal); T84.11 Breakdown (mechanical) of internal fixation device of bones of limb; X58.XXXA Exposure to other specified factors, initial encounter
CPT/HCPCS: 73560

== ENCOUNTER 2024-05-21 06:40 | Day surgery (SDC) | payer MEDICAID, SELFPAY ==
[2024-01-17 10:12] VITALS: BP 114/72; BMI 28.8
[2024-05-21 06:55] VITALS: BP 144/77; PULSE 80; RESP 18; TEMP 36.5; O2SAT 97
[2024-05-21 07:04] VITALS: BMI 27.3
[2024-05-21] MEDS: sodium chloride 0.9% 1,000 ML 30 ML IV (07:13)
--- NOTE | 2024-05-21 07:16 | ANES.PREANE2 ---
Pre-Anesthetic Assessment Height/Weight: Height 5 ft 8 in Weight 180 lb Temp Pulse Resp BP Pulse Ox O2 Del Method 97.7 F 80 18 144/77 97 Room Air 05/21/24 06:55 05/21/24 06:55 05/21/24 06:55 05/21/24 06:55 05/21/24 06:55 05/21/24 06:55 Preop Diagnosis: Screening colonoscopy Operation Date: 05/21/24 08:00 Proposed Procedures p Colonoscopy - 56206, [id number], Z12.11(Not Applicable) - Tyshawn Dang, DO Was Beta Natalia taken within 24 hours: N/A Was Clonidine taken within 24 hours: N/A Last intake: Intake Last Liquid Date 05/20/24 Last Liquid Time 16:00 Last Solid Date 05/19/24 Last Solid Time 20:00 Social Alcohol and Tobacco Exam alert, oriented x 3, clear to auscultation bilaterally and regular rate & rhythm Airway Submandibular: within normal limits Cervical ROM: within normal limits Mallampati: Class II Dentition: full and other (Very poor dentition, declines any loose teeth) Anesthetic Plan ASA status: 3 Anesthesia: General Other: No prior issues with anesthesia Patient very nervous this a.m. Completed bowel prep States that he has difficulty breathing when he walks long distances. Current smoker, states he thinks he has COPD but has not been worked up or placed on any inhalers. SpO2 97% on room air Hypothyroidism on Synthroid Prior hep C and opioid use disorder Labs reviewed from February Plan for MAC anesthetic Medications/Allergies Home Medications Medication Instructions Recorded Confirmed Last Taken Type levothyroxine 75 mcg tablet 75 mcg PO QAM hypo thyroid #90 tabs 07/04/23 05/21/24 05/21/24 Rx clonazepam 0.5 mg tablet (Klonopin) 1 mg PO BID 01/09/24 05/21/24 05/20/24 History buprenorphine 8 mg-naloxone 2 mg 1 film sublingual BID #60 ea 02/13/24 05/21/24 05/21/24 Rx sublingual film gabapentin 600 mg tablet 600 mg PO TID 02/15/24 05/21/24 05/21/24 History mirtazapine 30 mg tablet (Remeron) 30 mg PO BEDTIME depression 02/15/24 05/21/24 05/20/24 History tamsulosin 0.4 mg capsule (Flomax) 0.4 mg PO BEDTIME 02/15/24 05/21/24 05/20/24 History Allergies Allergy/AdvReac Type Severity Reaction Status Date / Time Penicillins Allergy Unknown Unknown Verified 04/04/24 10:22 haloperidol [From Haldol] Allergy Unknown Verified 04/04/24 10:22 ketorolac [From Toradol] Allergy Unknown Verified 04/04/24 10:22 Current Medications Generic Name Dose Route Start Last Admin Trade Name Tito PRN Reason Stop Dose Admin Sodium Chloride 1,000 mls @ 30 mls/hr 05/21/24 07:00 05/21/24 07:13 Sodium Chloride 0.9% IV 05/22/24 06:59 30 mls/hr .Q24H ISATU Administration PFSH Anesthesia Medical History Shakiness Healthcare maintenance Severe benzodiazepine use disorder in sustained remission Dental caries History of hepatitis C High cholesterol Depression Anxiety Fatigue Hypothyroid Chronic leg pain Mechanical complication internal fixation device like nail, plate, jennifer Psychiatric care Pain due to dental caries Family History Father Bladder cancer Mother Leukemia Social History Smoking and tobacco/nicotine status: current every day tobacco/nicotine user Quit status (tobacco/nicotine): not considering quitting Second hand smoke exposure: No Alcohol intake: former Substance/Drug Use: former Adopted: No Caregiver/support person: No Lives independently: Yes Housing: Apartment Marital status: Number of children: 1 Number of grandchildren: 0 Highest education level completed: GED or Equivalent service: No Current occupational status: disabled Pets and animals: No Leisure activites: other Leisure activities details: work out and watch TV Sexually active: No Do you think of yourself as: Straight/Heterosexual Current gender identity: Male Estella/Spiritism: [employer] Special estella needs: No Agree to transfusion: Yes Data Anesthesia Cardiac Studies: No Data to Display
--- NOTE | 2024-05-21 08:00 | P.HP_ITS ---
Providers/Chief Complaint Primary Care Provider: Carlie López MD Chief Complaint: Z12.11 History of Present Illness Martín Thorne is a 58 year old male Review of Systems General: Reports: 10 or more systems reviewed and unremarkable except in HPI and below Medications/Allergies Home Medications Medication Instructions Recorded Confirmed Last Taken Type levothyroxine 75 mcg tablet 75 mcg PO QAM hypo thyroid #90 tabs 07/04/23 05/21/24 05/21/24 Rx clonazepam 0.5 mg tablet (Klonopin) 1 mg PO BID 01/09/24 05/21/24 05/20/24 History buprenorphine 8 mg-naloxone 2 mg 1 film sublingual BID #60 ea 02/13/24 05/21/24 05/21/24 Rx sublingual film gabapentin 600 mg tablet 600 mg PO TID 02/15/24 05/21/24 05/21/24 History mirtazapine 30 mg tablet (Remeron) 30 mg PO BEDTIME depression 02/15/24 05/21/24 05/20/24 History tamsulosin 0.4 mg capsule (Flomax) 0.4 mg PO BEDTIME 02/15/24 05/21/24 05/20/24 History Allergies Allergy/AdvReac Type Severity Reaction Status Date / Time Penicillins Allergy Unknown Unknown Verified 04/04/24 10:22 haloperidol [From Haldol] Allergy Unknown Verified 04/04/24 10:22 ketorolac [From Toradol] Allergy Unknown Verified 04/04/24 10:22 PFSH Acute PFSH: Medical History Shakiness Healthcare maintenance Severe benzodiazepine use disorder in sustained remission Dental caries History of hepatitis C High cholesterol Depression Anxiety Fatigue Hypothyroid Chronic leg pain Mechanical complication internal fixation device like nail, plate, jennifer Psychiatric care Pain due to dental caries Family History Father Bladder cancer Mother Leukemia Social History Smoking and tobacco/nicotine status: current every day tobacco/nicotine user Quit status (tobacco/nicotine): not considering quitting Second hand smoke exposure: No Alcohol intake: former Substance/Drug Use: former Adopted: No Caregiver/support person: No Lives independently: Yes Housing: Apartment Marital status: Number of children: 1 Number of grandchildren: 0 Highest education level completed: GED or Equivalent service: No Current occupational status: disabled Pets and animals: No Leisure activites: other Leisure activities details: work out and watch TV Sexually active: No Do you think of yourself as: Straight/Heterosexual Current gender identity: Male Estella/Presybeterian: [employer] Special estella needs: No Agree to transfusion: Yes Vitals/I&O/Wt Last Vital Signs Temp 97.7 F 05/21/24 06:55 Pulse 80 05/21/24 06:55 Resp 18 05/21/24 06:55 BP 144/77 05/21/24 06:55 Pulse Ox 97 05/21/24 06:55 O2 Del Method Room Air 05/21/24 06:55 Weight last 48 hrs Weight 180 lb A&P Assessment and plan (1) Colon cancer screening: Plan Screening colonoscopy Attestations Medical Necessity Statement*: Home Coding Level of Care Code Acute Code for Chg Fwd Diagnoses Colon cancer screening Z12.11
[2024-05-21 08:20] VITALS: BP 114/64; PULSE 66; RESP 184; TEMP 36.1; O2SAT 97
[2024-05-21 08:38] VITALS: BP 114/62; PULSE 67; RESP 16; O2SAT 97
--- NOTE | 2024-05-21 08:41 | ANE.PACU2 ---
Inpatient post-anesthesia follow up: Airway intact: Yes Vital signs: Temperature 97.0 F Pulse Rate 67 Respiratory Rate 16 Blood Pressure 114/62 Pulse Oximetry 97 Oxygen Delivery Me thod Room Air Oxygen Flow Rate Fraction of Inspir ed Oxygen Hydration adequate: Yes Nausea and vomiting: No Pain level: 1 Mental status: Baseline
== END 2024-05-21 08:41 | disposition home or self-care (01) ==
PROVIDERS: PCP Family Medicine; Visit Provider Surgery
PROC: 0DJD8ZZ Inspection of Lower Intestinal Tract, Via Natural or Artificial Opening Endoscopic (ICD-10-PCS; CPT 45378; principal; 2024-05-21 08:00)
DX: Z12.11 Encounter for screening for malignant neoplasm of colon (principal); D12.2 Benign neoplasm of ascending colon; Z86.19 Personal history of other infectious and parasitic diseases; F32.A Depression, unspecified; F41.9 Anxiety disorder, unspecified; E03.9 Hypothyroidism, unspecified; F17.200 Nicotine dependence, unspecified, uncomplicated
CPT/HCPCS: 45385; 88305; J2250; J2704; J7030

== ENCOUNTER 2024-06-03 08:58 | Outpatient (CLI) | payer MEDICAID, SELFPAY ==
[2024-01-17 10:12] VITALS: BP 114/72; BMI 28.8
--- NOTE | 2024-06-03 10:00 | NM_ITS ---
WS: [id number] NUCLEAR MEDICINE HIDA SCAN WITH GALLBLADDER EJECTION FRACTION HISTORY: abdominal pain COMPARISON: 05/19/2016, gallbladder ultrasound 04/18/2024 TECHNIQUE: The patient was intravenously injected with 6.5 mCi of TC99m Mebrofenin. Immediate imaging over the right upper quadrant was followed by 5 minute image and additional images for a total of 60 minutes. Normal uptake of radiotracer throughout the liver. Activity identified in the gallbladder at 10 minutes and well distended by 60 minutes. Activity in the proximal small bowel was seen by 20 minutes. Good washout of the radiotracer from the liver by 60 minutes. The patient then drank 8 ounces of Ensure Plus. Ejection fraction at 60 minutes was 92%. Normal GB ej ection fraction is 35-75%. Post fatty meal symptoms: None. NM/NM hepatobiliary w phar* [id number] IMPRESSION: 1. Normal HIDA scan. 2. Normal gallbladder ejection fraction.
== END 2024-06-03 08:59 | disposition home or self-care (01) ==
PROVIDERS: PCP Family Medicine; Visit Provider Surgery
DX: R10.9 Unspecified abdominal pain (principal)
CPT/HCPCS: 78227; A9537

== ENCOUNTER 2024-09-18 12:00 | Emergency (ER) | payer MEDICAID, SELFPAY ==
[2024-01-17 10:12] VITALS: BP 114/72; BMI 28.8
[2024-09-18 12:14] VITALS: BP 115/75; PULSE 88; RESP 20; TEMP 36.7; O2SAT 96
[2024-09-18 13:37] LABS: Urine Appearance Clear (CLEAR); Urine Color Dark Yellow (Yellow); pH Urine 5 (5-7)
[2024-09-18 13:38] LABS: Add Urine Microscopic? YES; Bilirubin Urine 1+ (Negative); Blood Urine 3+ (Negative); Glucose Urine UA Trace (Normal); Ketones Urine 1+ (Negative); Nitrate Urine Negative (Negative); Protein Urine 1+ (Negative); Urobilinogen Urine Norm (Negative)
[2024-09-18 13:39] LABS: UA Manual Slide Review YES
[2024-09-18 13:42] LABS: Leukocyte Esterase Urine Trace (Negative)
[2024-09-18 13:43] LABS: Add Urine Culture? Yes; Bacteria Urine 2+ /hpf; RBC Urine 15-25 /hpf (0-2); Squamous Epithelial Cell Urine 0-4 /hpf (0-5)
[2024-09-18 14:42] LABS: Basophils % 0.2 %; Eosinophils # 0.1 10^3/uL (0.0-0.8); Hematocrit 48.7 % (37-53); Lymphocytes # 2.8 10^3/uL (0.8-4.8); Lymphocytes % 20.4 %; Mean Corpuscular HGB Conc 33.5 g/dL (30-55); Mean Corpuscular Hemoglobin 31.5 pg (27-33); Mean Platelet Volume 10.7 fL (7.4-10.4); Monocytes # 1.7 10^3/uL (0.2-0.9); Monocytes % 12.5 %; Neutrophils # 8.86 10^3/uL (1.8-7.7); Neutrophils % 65.6 %; Nucleated Red Blood Cells % 0 %; Platelet Count 206 10^3/cmm (157-399); Red Blood Count 5.18 10^6/uL (3.85-5.65); Red Cell Distribution Width 13.1 % (12.1-15.1)
[2024-09-18 15:03] LABS: Alanine Aminotransferase 11 U/L (0-41); Albumin Level 4.2 g/dL (3.5-5.2); Alkaline Phosphatase 119 U/L (40-130); Anion Gap 19.1 (5-19); Aspartate Amino Transferase 21 U/L (0-40); Blood Urea Nitrogen 15 mg/dL (8-23); Calcium 9.4 mg/dL (8.5-10.5); Carbon Dioxide 25 mmol/L (22-29); Chloride 98 mmol/L (98-107); Creatinine Clr Calc Pharmacy 79.8686; Globulin 3.5 g/dL (1.3-4.6); Glucose 94 mg/dL (65-115); Lipase 11 U/L (13-60); Osmolality Calculated 287 mOsm/kg (285-295); Potassium 4.1 mmol/L (3.5-5.1); Sodium 138 mmol/L (136-145); Total Bilirubin 0.4 mg/dL (0.15-1.2); Total Protein 7.7 g/dL (6.6-8.7)
--- NOTE | 2024-09-18 17:39 | CTR_ITS ---
PROCEDURE INFORMATION: Exam: CT Abdomen And Pelvis With Contrast Exam date and time: 09/18/2024 5:54 PM Age: 59 years old Clinical indication: Abdominal pain; Generalized; Additional info: Nausea vomiting abdominal pain TECHNIQUE: Imaging protocol: Computed tomography of the abdomen and pelvis with contrast. Radiation optimization: All CT scans at this facility use at least one of these dose optimization techniques: automated exposure control; mA and/or kV adjustment per patient size (includes targeted exams where dose is matched to clinical indication); or iterative reconstruction. Contrast material: OMNIPAQUE 350; Contrast volume: 100 ml; Contrast route: INTRAVENOUS (IV); COMPARISON: CT abdomen pelvis w con* [id number] 02/15/2024 1:08 PM RADIATION DOSE METRICS: Total DLP (mGy-cm): 819.53 FINDINGS: Lungs: Mild basilar scar versus atelectasis. Esophagus: Mural thickening distal thoracic esophagus. Diaphragm: Small hiatal hernia. Liver: No significant liver pathology. Gallbladder and biliary ducts: No significant gallbladder pathology. No biliary dilatation. Pancreas: No significant pancreatic pathology. Spleen: No significant splenic pathology. Adrenal glands: No significant adrenal pathology. Kidneys and ureters: There is mild smooth mural thickening of the left renal pelvis and left ureter and there is mild asymmetric dilatation of the left upper urinary tract to the level of a 4 mm calculus located just above the ureterovesical junction by proximally 7 mm. Subcentimeter renal cortical hypodensities, indeterminate by criteria but statistically most likely representing cysts. Stomach and bowel: No significant pathology. Appendix: Appendix within normal limits. Intraperitoneal space: No ascites. Vasculature: No abdominal aortic aneurysm. Lymph nodes: No evidence of lymphadenopathy. Urinary bladder: Unremarkable urinary bladder. Reproductive: No significant prostate pathology. Bones/joints: Bilateral proximal femoral fixation hardware. L5 spondylolysis with L5-S1 spondylolisthesis and degenerative disc disease. Soft tissues: Unremarkable. CT/CT abdomen pelvis w con* [id number] IMPRESSION: 1. Mildly obstructive 4 mm distal left ureteral calculus. Mild mural thickening of the left upper urinary tract raises the possibility of superimposed UTI; clinical correlation recommended. 2. Minor findings noted above. COMMENTS: Consistent with the [employer]'s Incidental Findings Committee white paper (J Am Murali Radiol 2018): Any incidental renal lesion less than 1 cm or classified as too small to characterize, or any incidental cystic renal lesion characterized as simple-appearing, is likely benign. No follow-up imaging is recommended for these lesions per consensus recommendations based on imaging criteria.
--- NOTE | 2024-09-18 17:40 | ED_ITS ---
HPI - Abdominal Pain 2 General: Chief Complaint: Abdominal Pain Stated Complaint: abdominal pain Time Seen by Provider: 09/18/24 17:36 History of Present Illness: Patient reports diffuse abdominal pain with nausea for the last 3 days. It is extremely bad when he eats any food. Water does not affected. Patient has had nausea with no vomiting. He states mainly it is burning achy and dull but it can come as sharp stabbing in waves. Patient is never had any pain like this before. Patient does not have any history of ulcers, gastritis, kidney stones fever, chills urinary problems Related Data Home Medications ?Medication ?Instructions ?Recorded ?Confirmed clonazepam 0.5 mg tablet (Klonopin) 1 mg PO BID 06/25/24 gabapentin 600 mg tablet 600 mg PO TID 02/15/2406/25 mirtazapine 30 mg tablet (Remeron) 30 mg PO BEDTIME de pression 02/15/24 06/25/24 tamsulosin 0.4 mg capsule (Flomax) 0.4 mg PO BEDTIME 0 02/15/24 06/25/24 Previous Rx's ?Medication ?Instructions ?Recorded levothyroxine 75 mcg tablet 75 mcg PO QAM hypo thyroid #90 tabs 07/04/23 buprenorphine 8 mg-naloxone 2 mg 1 film sublingual BID #60 ea 02/13/24 sublingual film phenazopyridine 100 mg tablet 100 mg PO Q8H PRN pain # 10 tabs 09/18/24 (Pyridium) sulfamethoxazole 800 1 tab PO BID #14 tabs mg-trimethoprim 160 mg tablet (Bactrim DS) Allergies Allergy/AdvReac Type Severity Reaction Status Date / Time Penicillins Allergy Unknown Unknown Verified 04/04/24 10:22 haloperidol (From Haldol) Allergy Unknown Verified 04/04/24 10:22 ketorolac (From Toradol) Allergy Unknown Verified 04/04/24 10:22 Review of Systems 2 General: Reports: 10 or more systems reviewed and unremarkable except in HPI and below PFSH ED 2 PFSH: Medical History Shakiness Healthcare maintenance Severe benzodiazepine use disorder in sustained remission Dental caries History of hepatitis C High cholesterol Depression Anxiety Fatigue Hypothyroid Chronic leg pain Mechanical complication internal fixation device like nail, plate, jennifer Psychiatric care Pain due to dental caries Family History Father Bladder cancer Mother Leukemia Social History Smoking and tobacco/nicotine status: current every day tobacco/nicotine user Quit status (tobacco/nicotine): not considering quitting Second hand smoke exposure: No Alcohol intake: former Substance/Drug Use: former Adopted: No Caregiver/support person: No Lives independently: Yes Housing: Apartment Marital status: Number of children: 1 Number of grandchildren: 0 Highest education level completed: GED or Equivalent service: No Current occupational status: disabled Pets and animals: No Leisure activites: other Leisure activities details: work out and watch TV Sexually active: No Do you think of yourself as: Straight/Heterosexual Current gender identity: Male Estella/Zoroastrian: Muslim [employer] Special estella needs: No Agree to transfusion: Yes Physical Exam 2 Const: COMMON NORMALS: no acute distress, average body habitus, patient oriented x3, no limitations, healthy appearing, alert and well nourished HENMT: COMMON NORMALS: normocephalic, atraumatic, hearing grossly normal bilaterally, external ears normal, Normal external nose present, moist oral mucous membranes and oropharynx normal HEAD & SCALP: normocephalic and atraumatic NOSE: Normal external nose present EXTERNAL EAR: Yes external ears normal Neck/C-Spine: COMMON NORMALS: no JVD Chest: COMMONS NORMALS: normal inspection of the chest and normal palpation of entire chest wall Resp: COMMON NORMALS: normal respiratory effort, No retractions, No use of accessory muscles and clear to auscultation bilaterally AUSCULTATION: clear to auscultation bilaterally Cardio: COMMON NORMALS: no JVD, regular rate, regular rhythm, S1 normal heart sound present, S2 normal heart sound present, No gallops present (Cardio), No clicks present (Cardio), No murmurs present (Cardio) and No rub (Cardio) R ATE: regular rate RHYTHM: regular rhythm HEART SOUNDS: S1 normal heart sound present and S2 normal heart sound present GI: COMMON NORMALS: Normal to inspection, nondistended, normoactive bowel sounds present, Soft to palpation, non-tender, No hepatosplenomegaly present and no masses PALPATION: Yes Soft to palpation and Yes No hepatosplenomegaly present Neuro: COMMON NORMALS: patient oriented x3 SENSORIUM/ORIENTATION: Yes alert Course 2 Vital Signs: Vital signs: Vital Signs Temperature 98.0 F 09/18/24 12:14 Pulse Rate 76 09/18/24 17:59 Respiratory Rate 20 H 09/18/24 12:14 Blood Pressure 121/83 09/18/24 17:59 Pulse Oximetry 96 09/18/24 17:59 Oxygen Delivery Me thod Room Air 09/18/24 17:59 MDM - Abdominal Pain Medical Decision Making Lab work revealed white count of 13.5, hemoglobin hematocrit of 16 and 48, BUN/creatinine 15/1.0, urinalysis revealed 3+ blood 10-15 white blood cells 3+ bacteria with trace leukocyte esterase, contrasted CT scan of the abdomen pelvis showed mildly obstructive 4 mm distal left ureteral calculus. Patient be placed on antibiotics and pain medicine and discharged home. Medical Records I reviewed the patient's medical records. Lab Data I reviewed the patient's lab results. 09/18/24 14:13 09/18/24 14:13 Labs/Radiology: Radiology Impressions Abdomen/Pelvis CT 09/18/24 17:39 IMPRESSION: 1. Mildly obstructive 4 mm distal left ureteral calculus. Mild mural thickening of the left upper urinary tract raises the possibility of superimposed UTI; clinical correlation recommended. 2. Minor findings noted above. COMMENTS: Consistent with the [employer]'s Incidental Findings Committee white paper (J Am Murali Radiol 2018): Any incidental renal lesion less than 1 cm or classified as too small to characterize, or any incidental cystic renal lesion characterized as simple-appearing, is likely benign. No follow-up imaging is recommended for these lesions per consensus recommendations based on imaging criteria. Laboratory Results WBC 13.50 10^3/uL (3.29-11.43) H 09/18/24 14:13 RBC 5.18 10^6/uL (3.85-5.65) 09/18/24 14:13 Hgb 16.30 g/dL (11.27-16.99) 09/18/24 14:13 Hct 48.7 % (37-53) 09/18/24 14:13 MCV 94.0 fl (82-101) 09/18/24 14:13 MCH 31.5 pg (27-33) 09/18/24 14:13 MCHC 33.5 g/dL (30-55) 09/18/24 14:13 RDW 13.1 % (12.1-15.1) 09/18/24 14:13 Plt Count 206 10^3/cmm (157-399) 09/18/24 14:13 MPV 10.7 fL (7.4-10.4) H 09/18/24 14:13 Neut % (Auto) 65.6 % 09/18/24 14:13 Lymph % (Auto) 20.4 % 09/18/24 14:13 [place] % (Auto) 12.5 % 09/18/24 14:13 Eos % (Auto) 1.0 % 09/18/24 14:13 Baso % (Auto) 0.2 % 09/18/24 14:13 Neut # (Auto) 8.86 10^3/uL (1.8-7.7) H 09/18/24 14:13 Lymph # (Auto) 2.8 10^3/uL (0.8-4.8) 09/18/24 14:13 [place] # (Auto) 1.7 10^3/uL (0.2-0.9) H 09/18/24 14:13 Eos # (Auto) 0.1 10^3/uL (0.0-0.8) 09/18/24 14:13 Baso # (Auto) 0.0 10^3/uL (0.0-0.1) 09/18/24 14:13 Nucleated RBC % (auto) 0 % 09/18/24 14:13 Nucleated RBCs # 0.0 /100WBC 09/18/24 14:13 Sodium 138 mmol/L (136-145) 09/18/24 14:13 Potassium 4.1 mmol/L (3.5-5.1) 09/18/24 14:13 Chloride 98 mmol/L (98-107) 09/18/24 14:13 Carbon Dioxide 25 mmol/L (22-29) 09/18/24 14:13 Anion Gap 19.1 (5-19) H 09/18/24 14:13 BUN 15 mg/dL (8-23) 09/18/24 14:13 Creatinine 1.0 mg/dL (0.7-1.2) 09/18/24 14:13 GFR Calculation 76.0 mL/min (90-130) L 09/18/24 14:13 Glucose 94 mg/dL (65-115) 09/18/24 14:13 Calculated Osmolality 287 mOsm/kg (285-295) 09/18/24 14:13 Calcium 9.4 mg/dL (8.5-10.5) 09/18/24 14:13 Total Bilirubin 0.4 mg/dL (0.15-1.2) 09/18/24 14:13 AST 21 U/L (0-40) 09/18/24 14:13 ALT 11 U/L (0-41) 09/18/24 14:13 Alkaline Phosphatase 119 U/L (40-130) 09/18/24 14:13 Total Protein 7.7 g/dL (6.6-8.7) 09/18/24 14:13 Albumin 4.2 g/dL (3.5-5.2) 09/18/24 14:13 Globulin 3.5 g/dL (1.3-4.6) 09/18/24 14:13 Lipase 11 U/L (13-60) L 09/18/24 14:13 Urine Color Dark yellow (Yellow) A 09/18/24 12:40 Urine Appearance Clear (CLEAR) 09/18/24 12:40 Urine pH 5 (5-7) 09/18/24 12:40 Ur Specific [place] 1.020 (1.005-1.030) 09/18/24 12:40 Urine Protein 1+ (Negative) H 09/18/24 12:40 Urine Glucose (UA) Trace (Normal) H 09/18/24 12:40 Urine Ketones 1+ (Negative) H 09/18/24 12:40 Urine Blood 3+ (Negative) H 09/18/24 12:40 Urine Nitrate Negative (Negative) 09/18/24 12:40 Urine Bilirubin 1+ (Negative) H 09/18/24 12:40 Urine Urobilinogen Norm mg/dL (Negative) 09/18/24 12:40 Ur Leukocyte Esterase Trace (Negative) H 09/18/24 12:40 Urine RBC 15-25 /hpf (0-2) H 09/18/24 12:40 Urine WBC 10-15 /hpf (0-5) H 09/18/24 12:40 Ur Squamous Epith Cells 0-4 /hpf (0-5) H 09/18/24 12:40 Amorphous Sediment Not Reportable 09/18/24 12:40 Urine Bacteria 2+ /hpf (NONE) H 09/18/24 12:40 All radiology interpretation(s) finalized by discharge Discharge Plan Discharge Patient Disposition: Home Clinical Impression: Kidney stone on left side Condition: Stable Prescriptions: New sulfamethoxazole-trimethoprim [Bactrim DS] 800-160 mg tablet 1 tab PO BID Qty: 14 0RF phenazopyridine [Pyridium] 100 mg tablet 100 mg PO Q8H PRN (Reason: pain) Qty: 10 0RF No Action clonazepam [Klonopin] 0.5 mg tablet 1 mg PO BID levothyroxine 75 mcg tablet 75 mcg PO QAM Qty: 90 3RF buprenorphine-naloxone 8-2 mg film 1 film sublingual BID Qty: 60 2RF gabapentin 600 mg tablet 600 mg PO TID tamsulosin [Flomax] 0.4 mg capsule 0.4 mg PO BEDTIME mirtazapine [Remeron] 30 mg tablet 30 mg PO BEDTIME Discharge Orders: Discharge ED (Routine); Ordered 09/18/24 Ordered By: Jhon Abraham Referrals: Carlie López MD [Primary Care Provider] - 1 week Patient Instructions: Kidney Stones (ED) Activity Restrictions/Additional Instructions: Your evaluation ER shows you have a kidney stone on your left side. This is the the root cause of your pain. It is 4 mm so it is likely to pass on its own without complication. Please take your pain medicine and antibiotic as directed. Push plenty of fluids. Follow-up with your family practice physician within the next 7 days for further evaluation treatment. If you start developing fever chills uncontrolled pain uncontrolled nausea vomiting please return to the ER. Print Language: Nepali Coding Level of Care Code ED Supervisor Partial Denture Department for Shannan Shelton
[2024-09-18] MEDS: lidocaine 2% viscous 15 ML, aluminum-mag hydrox-simethicon 30 ML, sucralfate oral liq 1 GM PO (17:47)
[2024-09-18] MEDS: ondansetron 2 mg/ML SDV 2 mL 4 MG IVP (17:54)
[2024-09-18] MEDS: iohexol 350 mg/mL 500 mL Btl (per mL) IV (17:57)
[2024-09-18 17:59] VITALS: BP 121/83; PULSE 76; O2SAT 96
[2024-09-18] MEDS: LORazepam 2 mg/mL INJ 1 mL 1 MG IVP (18:30)
[2024-09-18 18:54] VITALS: BP 116/80; PULSE 69; O2SAT 93
== END 2024-09-18 18:55 | disposition home or self-care (01) ==
PROVIDERS: Emergency Provider Emergency Medicine; PCP Family Medicine
DX: N20.0 Calculus of kidney (principal); Z72.0 Tobacco use
CPT/HCPCS: 36415; 74177; 80053; 81001; 83690; 85025; 87086; 96374; 96375; 99285; J2060; J2405

== ENCOUNTER 2024-12-14 14:16 | Emergency (ER) | payer MEDICAID, SELFPAY ==
[2024-01-17 10:12] VITALS: BP 114/72; BMI 28.8
[2024-12-14 14:18] VITALS: BP 102/67; PULSE 71; TEMP 36.7; O2SAT 98; BMI 25.8
--- NOTE | 2024-12-14 14:18 | XRR_ITS ---
PROCEDURE INFORMATION: Exam: XR Right Shoulder Exam date and time: 12/14/2024 3:07 PM Age: 59 years old Clinical indication: Pain; Shoulder; Right; Additional info: Shoulder pain TECHNIQUE: Imaging protocol: Radiologic exam of the right shoulder. Views: 2 or more views. COMPARISON: CT lung screening [id number] 09/14/2023 1:44 PM FINDINGS: Bones/joints: An old right clavicle fracture is noted. No acute fracture identified. Soft tissues: Normal. XR/XR shoulder RT min 2V* [id number] IMPRESSION: No acute findings.
--- NOTE | 2024-12-14 14:47 | XRR_ITS ---
PROCEDURE INFORMATION: Exam: XR Chest Exam date and time: 12/14/2024 3:07 PM Age: 59 years old Clinical indication: Cough TECHNIQUE: Imaging protocol: Radiologic exam of the chest. Views: 1 view. COMPARISON: CT lung screening [id number] 09/14/2023 1:44 PM FINDINGS: Lungs: Unremarkable. No consolidation or mass. Pleural spaces: Unremarkable. No pleural effusion. No pneumothorax. Heart/Mediastinum: Unremarkable. No cardiomegaly. Bones/joints: An old right clavicle fracture is noted. No acute fracture can be seen. XR/XR chest 1V portable [id number] IMPRESSION: No acute findings.
--- NOTE | 2024-12-14 14:48 | W.ED.EXTPRO ---
HPI - Extremity Problem General: Chief complaint: Extremity Problem,Nontraumatic Stated complaint: right shoulder blade pain Time Seen by Provider: 12/14/24 14:36 Source: patient Mode of arrival: ambulatory Limitations: no limitations History of Present Illness: 59-year-old male states he has been working out recently lifting has been having some pain in his right shoulder blade. States its much worse with movement and palpation states also has had a slight cough denies any fever shortness of breath denies any weakness Associated symptoms: Deny chest pain, fever(s) or rash Related Data Home Medications ?Medication ?Instructions ?Recorded ?Confirmed clonazepam 0.5 mg tablet (Klonopin) 1 mg PO BID 01/09/24 06/25/24 gabapentin 600 mg tablet 600 mg PO TID 02/15/24 06/25/24 mirtazapine 30 mg tablet (Remeron) 30 mg PO BEDTIME depression 02/15/24 06/25/24 tamsulosin 0.4 mg capsule (Flomax) 0.4 mg PO BEDTIME 02/15/24 06/25/24 Previous Rx's ?Medication ?Instructions ?Recorded levothyroxine 75 mcg tablet 75 mcg PO QAM hypo thyroid #90 tabs 07/04/23 buprenorphine 8 mg-naloxone 2 mg 1 film sublingual BID #60 ea 02/13/24 sublingual film phenazopyridine 100 mg tablet 100 mg PO Q8H PRN pain #10 tabs 09/18/24 (Pyridium) sulfamethoxazole 800 1 tab PO BID #14 tabs 09/18/24 mg-trimethoprim 160 mg tablet (Bactrim DS) methocarbamol 750 mg tablet 750 mg PO Q6H PRN spasms #20 tabs 12/14/24 naproxen 500 mg tablet (Naprosyn) 500 mg PO BID PRN pain #20 tabs 12/14/24 Allergies Allergy/AdvReac Type Severity Reaction Status Date / Time Penicillins Allergy Unknown Unknown Verified 12/14/24 14:24 haloperidol (From Haldol) Allergy Unknown Verified 12/14/24 14:24 ketorolac (From Toradol) Allergy Unknown Verified 12/14/24 14:24 Review of Systems Const: Denies: fever(s), chills, body aches or change in appetite ENMT: Denies: throat pain or dental pain Card: Denies: chest pain Resp: Denies: dyspnea GI: Denies: abdominal pain, nausea, vomiting or diarrhea Musc: Reports: extremity pain; Denies: neck pain or back pain Skin/Breast: Denies: rash Neuro: Denies: headache(s) PFSH ED PFSH: Medical History Shakiness Healthcare maintenance Severe benzodiazepine use disorder in sustained remission Dental caries History of hepatitis C High cholesterol Depression Anxiety Fatigue Hypothyroid Chronic leg pain Mechanical complication internal fixation device like nail, plate, jennifer Psychiatric care Pain due to dental caries Family History Father Bladder cancer Mother Leukemia Social History Smoking and tobacco/nicotine status: current every day tobacco/nicotine user Quit status (tobacco/nicotine): not considering quitting Second hand smoke exposure: No Alcohol intake: former Substance/Drug Use: former Adopted: No Caregiver/support person: No Lives independently: Yes Housing: Apartment Marital status: Number of children: 1 Number of grandchildren: 0 Highest education level completed: GED or Equivalent service: No Current occupational status: disabled Pets and animals: No Leisure activites: other Leisure activities details: work out and watch TV Sexually active: No Do you think of yourself as: Straight/Heterosexual Current gender identity: Male Estella/Scientologist: [employer] Special estella needs: No Agree to transfusion: Yes Physical Exam Const: COMMON NORMALS: no acute distress, patient oriented x3 and healthy appearing HENMT: COMMON NORMALS: normocephalic and atraumatic HEAD & SCALP: normocephalic and atraumatic Eye: COMMON NORMALS: conjunctivae normal CONJUNCTIVA: Yes conjunctivae normal Neck/C-Spine: COMMON NORMALS: full ROM and supple Chest: COMMONS NORMALS: normal inspection of the chest Resp: COMMON NORMALS: normal respiratory effort, No retractions, No use of accessory muscles and clear to auscultation bilaterally AUSCULTATION: clear to auscultation bilaterally Cardio: COMMON NORMALS: regular rate RATE: regular rate Back/Pelvis: OTHER: Tenderness over right rhomboid muscle no midline back tenderness. Extremity: COMMON NORMALS: normal to inspection and full ROM Neuro: COMMON NORMALS: patient oriented x3, moves all extremities and no focal motor deficits Psych: COMMON NORMALS: mental status grossly normal, Normal thought process present and cooperative THOUGHT PROCESS: Normal thought process present Skin: COMMON NORMALS: no rashes or lesions noted and no wounds GENERAL SKIN EXAM: no rashes or lesions noted Course Vital Signs: Vital signs: Vital Signs Temperature 98.0 F 12/14/24 14:18 Pulse Rate 71 12/14/24 14:18 Blood Pressure 102/67 12/14/24 14:18 Pulse Oximetry 98 12/14/24 14:18 Oxygen Delivery Me thod Room Air 12/14/24 14:18 MDM - Extremity (Nontraumatic) Medical Decision Making Patient presents here with likely rhomboid muscle strain is point tender over his rhomboid rib exam is benign x-rays are normal he stable for discharge follow-up PCP return if worsening. Medical Records I reviewed the patient's medical records. XR interpretation done by ED provider, pending radiology final review ED provider radiology interpretation(s): xr r shoulder: no acute abnormality cxr: no acute abnormality Discharge Plan Discharge Patient Disposition: Home Clinical Impression: Rhomboid muscle strain Condition: Stable Prescriptions: New methocarbamol 750 mg tablet 750 mg PO Q6H PRN (Reason: spasms) Qty: 20 0RF naproxen [Naprosyn] 500 mg tablet 500 mg PO BID PRN (Reason: pain) Qty: 20 0RF No Action clonazepam [Klonopin] 0.5 mg tablet 1 mg PO BID levothyroxine 75 mcg tablet 75 mcg PO QAM Qty: 90 3RF buprenorphine-naloxone 8-2 mg film 1 film sublingual BID Qty: 60 2RF gabapentin 600 mg tablet 600 mg PO TID tamsulosin [Flomax] 0.4 mg capsule 0.4 mg PO BEDTIME mirtazapine [Remeron] 30 mg tablet 30 mg PO BEDTIME sulfamethoxazole-trimethoprim [Bactrim DS] 800-160 mg tablet 1 tab PO BID Qty: 14 0RF phenazopyridine [Pyridium] 100 mg tablet 100 mg PO Q8H PRN (Reason: pain) Qty: 10 0RF Discharge Orders: Discharge ED (Routine); Ordered 12/14/24 Ordered By: Maryanne Man Referrals: Carlie López MD [Primary Care Provider, Family Practice] - 4-7 days Discharge Diet: Advance as tolerated Discharge Activity: Resume usual activity Patient Instructions: Shoulder Pain (ED) Print Language: Turkmen Coding Level of Care Code ED Bass Mechanism Maker for Shannan Shelton
[2024-12-14] MEDS: methocarbamol 750 mg Tablet 1500 MG PO (14:54)
[2024-12-14] MEDS: naproxen 500 mg Tablet PO (14:54)
[2024-12-14 15:26] VITALS: BP 103/83; PULSE 60; O2SAT 97
== END 2024-12-14 15:28 | disposition home or self-care (01) ==
PROVIDERS: Emergency Provider Emergency Medicine; PCP Family Medicine
DX: S46.811A Strain of other muscles, fascia and tendons at shoulder and upper arm level, right arm, initial encounter (principal); Z72.0 Tobacco use; X50.0XXA Overexertion from strenuous movement or load, initial encounter
CPT/HCPCS: 71045; 73030; 99284; J9999

== ENCOUNTER 2025-03-10 14:43 | Emergency (ER) | payer MEDICAID, SELFPAY ==
[2024-01-17 10:12] VITALS: BP 114/72; BMI 28.8
[2025-03-10 14:48] VITALS: BP 131/75; PULSE 84; RESP 16; TEMP 36.7; O2SAT 94
[2025-03-10 15:31] LABS: Hematocrit 42.0 % (37-53); Hemoglobin 14.10 g/dL (11.27-16.99); Mean Corpuscular HGB Conc 33.6 g/dL (30-55); Mean Corpuscular Hemoglobin 31.1 pg (27-33); Mean Corpuscular Volume 92.7 fl (82-101); Nucleated Red Blood Cells % 0 %; Platelet Count 166 10^3/cmm (157-399); Red Blood Count 4.53 10^6/uL (3.85-5.65); White Blood Count 7.61 10^3/uL (3.29-11.43)
[2025-03-10 15:45] LABS: Alanine Aminotransferase 14 U/L (0-41); Albumin Level 3.8 g/dL (3.5-5.2); Alkaline Phosphatase 90 U/L (40-130); Anion Gap 12.2 (5-19); Aspartate Amino Transferase 20 U/L (0-40); Blood Urea Nitrogen 13 mg/dL (8-23); Calcium 8.5 mg/dL (8.5-10.5); Carbon Dioxide 25 mmol/L (22-29); Chloride 107 mmol/L (98-107); Creatinine Clr Calc Pharmacy 109.8319; Globulin 2.8 g/dL (1.3-4.6); Glucose 98 mg/dL (65-115); Lipase 10 U/L (13-60); Osmolality Calculated 290 mOsm/kg (285-295); Potassium 4.2 mmol/L (3.5-5.1); Sodium 140 mmol/L (136-145); Total Protein 6.6 g/dL (6.6-8.7)
--- NOTE | 2025-03-10 16:15 | CTR_ITS ---
PROCEDURE INFORMATION: Exam: CT Abdomen And Pelvis Without Contrast Exam date and time: 03/10/2025 4:26 PM Age: 59 years old Clinical indication: Abdominal pain; Localized; Right lower quadrant (rlq); Prior surgery; Surgery date: 6+ months; Surgery type: Bilat hips TECHNIQUE: Imaging protocol: Computed tomography of the abdomen and pelvis without contrast. Radiation optimization: All CT scans at this facility use at least one of these dose optimization techniques: automated exposure control; mA and/or kV adjustment per patient size (includes targeted exams where dose is matched to clinical indication); or iterative reconstruction. COMPARISON: CT abdomen pelvis w con* [id number] 09/18/2024 5:54 PM RADIATION DOSE METRICS: Total DLP (mGy-cm): 487.63 FINDINGS: Lungs: Linear 4 mm nodule anteriorly in the right middle lobe. Mild left lower lobe atelectasis. Liver: The liver is unremarkable. Gallbladder and biliary ducts: The gallbladder is unremarkable. No biliary ductal dilatation. Pancreas: The pancreas is unremarkable. Spleen: The spleen is unremarkable. Adrenal glands: The adrenal glands are unremarkable. Kidneys and ureters: No hydronephrosis or nephrolithiasis. Stomach and bowel: No evidence of bowel obstruction. No pericolonic inflammatory stranding. Appendix: Appendix caliber is normal. Mild hyperdensity in the proximal appendiceal lumen could represent appendicolith. No periappendiceal inflammatory changes. Intraperitoneal space: No significant peritoneal free fluid. No free peritoneal air. Vasculature: Aortic caliber is normal. Lymph nodes: No lymph node enlargement. Urinary bladder: No focal wall thickening of the urinary bladder. Reproductive: Visualized portions of the male reproductive tract are unremarkable, though routine CT is limited in this regard. Bones/joints: Unchanged L5 spondylolysis and mild spondylolisthesis . Bilateral internal fixation of the femurs again noted. No suspicious osseous lesions. Soft tissues: Unremarkable. CT/CT abdomen pelvis wo con [id number] IMPRESSION: 1. No acute intra-abdominal abnormalities noted. 2. Linear 4 mm nodule anteriorly in the right middle lobe. For patients at low risk (minimal or absent history of smoking and of other known risk factors), no routine follow-up is indicated. For patients at high risk (history of smoking or of other known risk factors), consider optional CT Chest at 12 months. (Reference: [place]) REFERENCES: Leonor Encarnacion et al. Guidelines for Management of Incidental Pulmonary Nodules Detected on CT Images: From the Fleischner Society 2017. Radiology. 2017;284(1):228-243.
--- NOTE | 2025-03-10 16:19 | ED_ITS ---
HPI - Abdominal Pain 2 General: Chief Complaint: Abdominal Pain Stated Complaint: right side ad pain Time Seen by Provider: 03/10/25 14:46 History of Present Illness: 59-year-old male presents emergency room complaining right lower quadrant abdominal pain. Poor appetite. Patient states she has had about a 40 pound weight loss over the last year. He was evaluated previously including a CT scan in September of this year that showed a kidney stone. In May 2024 he had a hepatobiliary scan which showed normal functioning gallbladder. Patient denies any hematochezia melena hematemesis or coffee-ground emesis. States he is chronically nauseous he denies fever denies dysuria urgency or frequency denies hematuria. Localizes pain to the lower denies any abdominal surgeries Associated Symptoms: Denies chills, dysuria and fever(s) Related Data Home Medications ?Medication ?Instructions ?Recorded ?Confirmed clonazepam 0.5 mg tablet (Klonopin) 1 mg PO BID 06/25/24 gabapentin 600 mg tablet 600 mg PO TID 02/15/2406/25 mirtazapine 30 mg tablet (Remeron) 30 mg PO BEDTIME de pression 02/15/24 06/25/24 tamsulosin 0.4 mg capsule (Flomax) 0.4 mg PO BEDTIME 0 02/15/24 06/25/24 Previous Rx's ?Medication ?Instructions ?Recorded levothyroxine 75 mcg tablet 75 mcg PO QAM hypo thyroid #90 tabs 07/04/23 buprenorphine 8 mg-naloxone 2 mg 1 film sublingual BID #60 ea 02/13/24 sublingual film phenazopyridine 100 mg tablet 100 mg PO Q8H PRN pain # 10 tabs 09/18/24 (Pyridium) sulfamethoxazole 800 1 tab PO BID #14 tabs mg-trimethoprim 160 mg tablet (Bactrim DS) methocarbamol 750 mg tablet 750 mg PO Q6H PRN spasms # 20 tabs 12/14/24 naproxen 500 mg tablet (Naprosyn) 500 mg PO BID PRN pa in #20 tabs 12/14/24 Allergies Allergy/AdvReac Type Severity Reaction Status Date / Time Penicillins Allergy Unknown Unknown Verified 12/14/24 14:24 haloperidol (From Haldol) Allergy Unknown Verified 12/14/24 14:24 ketorolac (From Toradol) Allergy Unknown Verified 12/14/24 14:24 Review of Systems 2 Const: Reports: change in appetite and change in weight; Denies: fever(s) or chills Card: Denies: chest pain Resp: Denies: dyspnea GI: Reports: abdominal pain : Denies: dysuria, urinary frequency or urinary urgency Musc: Denies: neck pain or back pain Skin/Breast: Denies: rash PFSH ED 2 PFSH: Medical History Shakiness Healthcare maintenance Severe benzodiazepine use disorder in sustained remission Dental caries History of hepatitis C High cholesterol Depression Anxiety Fatigue Hypothyroid Chronic leg pain Mechanical complication internal fixation device like nail, plate, jennifer Psychiatric care Pain due to dental caries Family History Father Bladder cancer Mother Leukemia Social History Smoking and tobacco/nicotine status: current every day tobacco/nicotine user Quit status (tobacco/nicotine): not considering quitting Second hand smoke exposure: No Alcohol intake: former Substance/Drug Use: former Adopted: No Caregiver/support person: No Lives independently: Yes Housing: Apartment Marital status: Number of children: 1 Number of grandchildren: 0 Highest education level completed: GED or Equivalent service: No Current occupational status: disabled Pets and animals: No Leisure activites: other Leisure activities details: work out and watch TV Sexually active: No Do you think of yourself as: Straight/Heterosexual Current gender identity: Male Estella/Sikhism: Christianity [employer] Special estella needs: No Agree to transfusion: Yes Physical Exam 2 Const: GENERAL APPEARANCE: cooperative ORIENTATION/CONSCIOUSNESS: Yes awake, Yes oriented to person, Yes oriented to place and Yes oriented to time HENMT: COMMON NORMALS: normocephalic, atraumatic and hearing grossly normal bilaterally HEAD & SCALP: normocephalic and atraumatic Resp: COMMON NORMALS: normal respiratory effort, No retractions, No use of accessory muscles and clear to auscultation bilaterally AUSCULTATION: clear to auscultation bilaterally Cardio: COMMON NORMALS: regular rate, regular rhythm and No murmurs present (Cardio) RATE: regular rate RHYTHM: regular rhythm GI: COMMON NORMALS: No hepatosplenomegaly present AUSCULTATION: Yes normoactive bowel sounds PALPATION: Yes Tenderness to palpation present (GI) Details: RLQ, No Guarding due to palpation present (GI) and Yes No hepatosplenomegaly present Extremity: COMMON NORMALS: normal to inspection, capillary refill normal, no clubbing, cyanosis or edema, no calf tenderness and no pedal edema Neuro: SENSORIUM/ORIENTATION: Yes oriented to person, Yes oriented to place and Yes oriented to time Skin: COMMON NORMALS: no rashes or lesions noted GENERAL SKIN EXAM: no rashes or lesions noted Course 2 Vital Signs: Vital signs: Vital Signs Temperature 98.0 F 03/10/25 14:48 Pulse Rate 59 L 03/10/25 18:00 Respiratory Rate 16 03/10/25 14:48 Blood Pressure 122/83 03/10/25 18:00 Pulse Oximetry 98 03/10/25 18:00 Oxygen Delivery Me thod Room Air 03/10/25 14:48 MDM - Abdominal Pain Medical Decision Making Patient advised of 4 mm nodule he is a regular smoker according radiology recommendations he should have a CT done and again in a year we contacted him to make sure that he was aware that he should talk to his primary care doctor about this. As for his original complaints laboratory studies are normal there is no acute findings on the CT of the abdomen. He should follow-up with his primary care doctor if he has persistent problems he should probably should have endoscopy he tells me he has had endoscopy done recently. I see the colonoscopy did not EGD. Follow-up with primary care for further evaluation. No emergent condition at this time. Medical Records I reviewed the patient's medical records. Lab Data I reviewed the patient's lab results. 03/10/25 15:23 03/10/25 15:23 Labs/Radiology: Radiology Impressions Abdomen/Pelvis CT 03/10/25 16:15 IMPRESSION: 1. No acute intra-abdominal abnormalities noted. 2. Linear 4 mm nodule anteriorly in the right middle lobe. For patients at low risk (minimal or absent history of smoking and of other known risk factors), no routine follow-up is indicated. For patients at high risk (history of smoking or of other known risk factors), consider optional CT Chest at 12 months. (Reference: Leonor) REFERENCES: Leonor Encarnacion et al. Guidelines for Management of Incidental Pulmonary Nodules Detected on CT Images: From the Fleischner Society 2017. Radiology. 2017;284(1):228-243. Laboratory Results WBC 7.61 10^3/uL (3.29-11.43) 03/10/25 15:23 RBC 4.53 10^6/uL (3.85-5.65) 03/10/25 15:23 Hgb 14.10 g/dL (11.27-16.99) 03/10/25 15:23 Hct 42.0 % (37-53) 03/10/25 15:23 MCV 92.7 fl (82-101) 03/10/25 15:23 MCH 31.1 pg (27-33) 03/10/25 15:23 MCHC 33.6 g/dL (30-55) 03/10/25 15:23 RDW 13.7 % (12.1-15.1) 03/10/25 15:23 Plt Count 166 10^3/cmm (157-399) 03/10/25 15:23 MPV 10.3 fL (7.4-10.4) 03/10/25 15:23 Neut % (Auto) 73.7 % 03/10/25 15:23 Lymph % (Auto) 19.1 % 03/10/25 15:23 [place] % (Auto) 6.7 % 03/10/25 15:23 Eos % (Auto) 0.1 % 03/10/25 15:23 Baso % (Auto) 0.3 % 03/10/25 15:23 Neut # (Auto) 5.61 10^3/uL (1.8-7.7) 03/10/25 15:23 Lymph # (Auto) 1.5 10^3/uL (0.8-4.8) 03/10/25 15:23 [place] # (Auto) 0.5 10^3/uL (0.2-0.9) 03/10/25 15:23 Eos # (Auto) 0.0 10^3/uL (0.0-0.8) 03/10/25 15:23 Baso # (Auto) 0.0 10^3/uL (0.0-0.1) 03/10/25 15:23 Nucleated RBC % (auto) 0 % 03/10/25 15:23 Nucleated RBCs # 0.0 /100WBC 03/10/25 15:23 Sodium 140 mmol/L (136-145) 03/10/25 15:23 Potassium 4.2 mmol/L (3.5-5.1) 03/10/25 15:23 Chloride 107 mmol/L (98-107) 03/10/25 15:23 Carbon Dioxide 25 mmol/L (22-29) 03/10/25 15:23 Anion Gap 12.2 (5-19) 03/10/25 15:23 BUN 13 mg/dL (8-23) 03/10/25 15:23 Creatinine 0.7 mg/dL (0.7-1.2) 03/10/25 15:23 GFR Calculation 114.6 mL/min (90-130) 03/10/25 15:23 Glucose 98 mg/dL (65-115) 03/10/25 15:23 Calculated Osmolality 290 mOsm/kg (285-295) 03/10/25 15:23 Calcium 8.5 mg/dL (8.5-10.5) 03/10/25 15:23 Total Bilirubin 0.2 mg/dL (0.15-1.2) 03/10/25 15:23 AST 20 U/L (0-40) 03/10/25 15:23 ALT 14 U/L (0-41) 03/10/25 15:23 Alkaline Phosphatase 90 U/L (40-130) 03/10/25 15:23 Total Protein 6.6 g/dL (6.6-8.7) 03/10/25 15:23 Albumin 3.8 g/dL (3.5-5.2) 03/10/25 15:23 Globulin 2.8 g/dL (1.3-4.6) 03/10/25 15:23 Lipase 10 U/L (13-60) L 03/10/25 15:23 All radiology interpretation(s) finalized by discharge Discharge Plan Discharge Patient Disposition: Home Clinical Impression: Chronic abdominal pain Condition: Stable Prescriptions: No Action clonazepam [Klonopin] 0.5 mg tablet 1 mg PO BID levothyroxine 75 mcg tablet 75 mcg PO QAM Qty: 90 3RF buprenorphine-naloxone 8-2 mg film 1 film sublingual BID Qty: 60 2RF gabapentin 600 mg tablet 600 mg PO TID tamsulosin [Flomax] 0.4 mg capsule 0.4 mg PO BEDTIME mirtazapine [Remeron] 30 mg tablet 30 mg PO BEDTIME sulfamethoxazole-trimethoprim [Bactrim DS] 800-160 mg tablet 1 tab PO BID Qty: 14 0RF phenazopyridine [Pyridium] 100 mg tablet 100 mg PO Q8H PRN (Reason: pain) Qty: 10 0RF methocarbamol 750 mg tablet 750 mg PO Q6H PRN (Reason: spasms) Qty: 20 0RF naproxen [Naprosyn] 500 mg tablet 500 mg PO BID PRN (Reason: pain) Qty: 20 0RF Discharge Orders: Discharge ED (Routine); Ordered 03/10/25 Ordered By: Johnathan Diaz Referrals: Carlie López MD [Primary Care Provider, Family Practice] Discharge Diet: Usual diet Discharge Activity: Resume usual activity Patient Instructions: Abdominal Pain (ED), Opioid Safety, Pain Management, Patient Portal & [place] Instructions Activity Restrictions/Additional Instructions: Thank you for choosing [facility] for your healthcare needs today. It is very important that you follow up as instructed or that you return to the Emergency Department should you have concerns or if your condition changes or worsens in any way. Follow-up with your primary care doctor Print Language: Cameroonian Coding Level of Care Code ED Tab Builder for Shannan Shelton
[2025-03-10 18:00] VITALS: BP 122/83; PULSE 59; O2SAT 98
== END 2025-03-10 18:00 | disposition home or self-care (01) ==
PROVIDERS: Physician Assistant; Emergency Provider Family Medicine; PCP Family Medicine
DX: R10.9 Unspecified abdominal pain (principal); Z72.0 Tobacco use
CPT/HCPCS: 36415; 74176; 80053; 83690; 85025; 99284; J7030

== ENCOUNTER 2025-05-10 10:33 | Emergency (ER) | payer MEDICAID, SELFPAY ==
[2024-01-17 10:12] VITALS: BP 114/72; BMI 28.8
[2025-05-10 10:37] VITALS: BP 109/80; PULSE 64; RESP 16; TEMP 36.4; O2SAT 96; BMI 24.3
--- NOTE | 2025-05-10 10:48 | W.ED.MALEGU ---
HPI - Male Genitourinary General: Chief complaint: Urogenital-Male Stated complaint: n/v left side pain prostate pain Time Seen by Provider: 05/10/25 10:41 History of Present Illness: Patient is a 59-year-old male presents to the emergency room due to difficulty voiding. Patient states this has been worsening over the last 3-4 months. He does have a history of urolithiasis. He does not know what his PSA is, and stated he went to his doctor, that was post to get a PSA, and something was wrong with getting the test. There is a family history of prostate cancer. Patient would like to go ahead and have a PSA here. Denies any new sexual partners. No drainage from his penis. Associated symptoms: Deny dysuria Related Data Home Medications ?Medication ?Instructions ?Recorded ?Confirmed clonazepam 0.5 mg tablet (Klonopin) 1 mg PO BID 01/09/24 06/25/24 gabapentin 600 mg tablet 600 mg PO TID 02/15/24 06/25/24 mirtazapine 30 mg tablet (Remeron) 30 mg PO BEDTIME depression 02/15/24 06/25/24 tamsulosin 0.4 mg capsule (Flomax) 0.4 mg PO BEDTIME 02/15/24 06/25/24 Previous Rx's ?Medication ?Instructions ?Recorded levothyroxine 75 mcg tablet 75 mcg PO QAM hypo thyroid #90 tabs 07/04/23 buprenorphine 8 mg-naloxone 2 mg 1 film sublingual BID #60 ea 02/13/24 sublingual film phenazopyridine 100 mg tablet 100 mg PO Q8H PRN pain #10 tabs 09/18/24 (Pyridium) sulfamethoxazole 800 1 tab PO BID #14 tabs 09/18/24 mg-trimethoprim 160 mg tablet (Bactrim DS) methocarbamol 750 mg tablet 750 mg PO Q6H PRN spasms #20 tabs 12/14/24 naproxen 500 mg tablet (Naprosyn) 500 mg PO BID PRN pain #20 tabs 12/14/24 Allergies Allergy/AdvReac Type Severity Reaction Status Date / Time Penicillins Allergy Unknown Unknown Verified 12/14/24 14:24 haloperidol (From Haldol) Allergy Unknown Verified 12/14/24 14:24 ketorolac (From Toradol) Allergy Unknown Verified 12/14/24 14:24 Review of Systems General: Reports: 10 or more systems reviewed and unremarkable except in HPI and below Const: Reports: change in appetite and change in weight; Denies: fever(s) or chills Card: Denies: chest pain Resp: Denies: dyspnea GI: Reports: abdominal pain : Reports: urinary urgency, urinary hesitancy, difficulty starting urination, nocturia and oliguria; Denies: dysuria, urinary frequency, genital lesions or penile discharge Musc: Denies: neck pain or back pain Skin/Breast: Denies: rash or pruritus Neuro: Denies: headache(s) or numbness in extremities Psych: Denies: anxiety or depression PFSH ED PFSH: Medical History (Updated 05/10/25 @ 11:14 by JESSICA Goldstein) Shakiness Healthcare maintenance Severe benzodiazepine use disorder in sustained remission Dental caries History of hepatitis C High cholesterol Depression Anxiety Fatigue Hypothyroid Chronic leg pain Mechanical complication internal fixation device like nail, plate, jennifer Psychiatric care Pain due to dental caries Family History Father Bladder cancer Mother Leukemia Social History Smoking and tobacco/nicotine status: current every day tobacco/nicotine user Quit status (tobacco/nicotine): not considering quitting Second hand smoke exposure: No Alcohol intake: former Substance/Drug Use: former Adopted: No Caregiver/support person: No Lives independently: Yes Housing: Apartment Marital status: Number of children: 1 Number of grandchildren: 0 Highest education level completed: GED or Equivalent service: No Current occupational status: disabled Pets and animals: No Leisure activites: other Leisure activities details: work out and watch TV Sexually active: No Do you think of yourself as: Straight/Heterosexual Current gender identity: Male Estella/Sikh: Confucianist [employer] Special estella needs: No Agree to transfusion: Yes Physical Exam Const: GENERAL APPEARANCE: cooperative ORIENTATION/CONSCIOUSNESS: Yes awake, Yes oriented to person, Yes oriented to place and Yes oriented to time HENMT: COMMON NORMALS: normocephalic, atraumatic and hearing grossly normal bilaterally HEAD & SCALP: normocephalic and atraumatic Chest: COMMONS NORMALS: normal inspection of the chest Resp: COMMON NORMALS: normal respiratory effort, No retractions, No use of accessory muscles and clear to auscultation bilaterally AUSCULTATION: clear to auscultation bilaterally Cardio: COMMON NORMALS: regular rate, regular rhythm and No murmurs present (Cardio) RATE: regular rate RHYTHM: regular rhythm GI: COMMON NORMALS: Normal to inspection, nondistended, normoactive bowel sounds present, Soft to palpation and No hepatosplenomegaly present AUSCULTATION: Yes normoactive bowel sounds PALPATION: Yes Soft to palpation, No Tenderness to palpation present (GI), No Guarding due to palpation present (GI) and Yes No hepatosplenomegaly present Extremity: COMMON NORMALS: normal to inspection, capillary refill normal, no clubbing, cyanosis or edema, no calf tenderness and no pedal edema Neuro: SENSORIUM/ORIENTATION: Yes oriented to person, Yes oriented to place and Yes oriented to time Skin: COMMON NORMALS: no rashes or lesions noted GENERAL SKIN EXAM: no rashes or lesions noted Course Vital Signs: Vital signs: Vital Signs Temperature 97.5 F L 05/10/25 10:37 Pulse Rate 64 05/10/25 10:37 Respiratory Rate 16 05/10/25 10:37 Blood Pressure 109/80 05/10/25 10:37 Pulse Oximetry 96 05/10/25 10:37 Oxygen Delivery Me thod Room Air 05/10/25 10:37 MDM - Male Medical Decision Making Patient is 59-year-old gentleman that comes to the ED with complaints of inability to urinate, worsening prostate issues. Will check routine urinalysis, PSA. Will proceed with CT if urine analysis dictates. Urinalysis was negative. PSA was pending, however patient wanted to wait for this, which was 0.54, not indicating any concern. Given his symptoms, I have asked him to take Flomax, and sent to the pharmacy. As well, I recommended follow-up with urology for possible UroLift for symptom management. Medical Records I reviewed the patient's medical records. Lab Data I reviewed the patient's lab results. Laboratory Results PSA Screen 0.53 ng/mL (0-4) 05/10/25 11:18 Urine Color Yellow (Yellow) 05/10/25 10:50 Urine Appearance Clear (CLEAR) 05/10/25 10:50 Urine pH 6 (5-7) 10/05/25 10:50 Ur Specific [place] 1.020 (1.005-1.030) 05/10/25 10:50 Urine Protein Neg (Negative) 05/10/25 10:50 Urine Glucose (UA) Norm (Normal) 05/10/25 10:50 Urine Ketones Negative (Negative) 05/10/25 10:50 Urine Blood Neg (Negative) 05/10/25 10:50 Urine Nitrate Negative (Negative) 05/10/25 10:50 Urine Bilirubin Neg (Negative) 05/10/25 10:50 Urine Urobilinogen Neg mg/dL (Negative) 05/10/25 10:50 Ur Leukocyte Esterase Negative (Negative) 05/10/25 10:50 Amorphous Sediment Not Reportable 05/10/25 10:50 No radiology studies performed this visit Discharge Plan Discharge Patient Disposition: Home Clinical Impression: Dysuria BPH (benign prostatic hyperplasia) Qualifiers: Lower urinary tract symptom presence: symptoms present Lower urinary tract symptom detail: urinary frequency Qualified Code(s): N40.1 - Benign prostatic hyperplasia with lower urinary tract symptoms Condition: Stable Prescriptions: No Action clonazepam [Klonopin] 0.5 mg tablet 1 mg PO BID levothyroxine 75 mcg tablet 75 mcg PO QAM Qty: 90 3RF buprenorphine-naloxone 8-2 mg film 1 film sublingual BID Qty: 60 2RF gabapentin 600 mg tablet 600 mg PO TID tamsulosin [Flomax] 0.4 mg capsule 0.4 mg PO BEDTIME mirtazapine [Remeron] 30 mg tablet 30 mg PO BEDTIME sulfamethoxazole-trimethoprim [Bactrim DS] 800-160 mg tablet 1 tab PO BID Qty: 14 0RF phenazopyridine [Pyridium] 100 mg tablet 100 mg PO Q8H PRN (Reason: pain) Qty: 10 0RF methocarbamol 750 mg tablet 750 mg PO Q6H PRN (Reason: spasms) Qty: 20 0RF naproxen [Naprosyn] 500 mg tablet 500 mg PO BID PRN (Reason: pain) Qty: 20 0RF Discharge Orders: Discharge ED (Routine); Ordered 05/10/25 Ordered By: Anayeli Bhagat Referrals: Carlie López MD [Primary Care Provider, Family Practice] Discharge Activity: Resume usual activity Patient Instructions: Patient Portal & [place] Instructions, Benign Prostatic Hypertrophy (BPH), Prostate Specific Antigen Test Activity Restrictions/Additional Instructions: - Make an appointment to return to your doctor for follow-up - Your PSA also called your prostate-specific antigen, is pending, and will be reported to your doctor. - No additional abnormalities were found in your urine analysis. - I called in medication to help improve your symptoms of your potentially benign prostatic hypertrophy or an oversized of your prostate, called tamsulosin. Tamsulosin side effects include lightheadedness, and dizziness. Make sure when standing, you do not have any lightheadedness or dizziness or sit back down, consume water, and make sure symptoms have resolved. - Return to ED for emergent issues associated with your prostate, inability to void. Print Language: Liberian Coding Level of Care Code ED Human Resource Professional for Shannan Shelton
[2025-05-10 10:57] LABS: Add Urine Microscopic? NO
[2025-05-10 11:05] LABS: Glucose Urine UA Norm (Normal); Nitrate Urine Negative (Negative); Specific Gravity, Urine 1.020 (1.005-1.030)
[2025-05-10 11:07] LABS: Charge for UA Resulting for Rev
[2025-05-10 11:49] LABS: PSA Screen - Urology 0.53 ng/mL (0-4)
== END 2025-05-10 11:53 | disposition home or self-care (01) ==
PROVIDERS: Emergency Provider Physician Assistant; PCP Family Medicine
DX: R30.0 Dysuria (principal); N40.1 Benign prostatic hyperplasia with lower urinary tract symptoms; Z72.0 Tobacco use
CPT/HCPCS: 81003; 99283; G0103

== ENCOUNTER 2025-07-28 13:22 | Emergency (ER) | payer MEDICAID, SELFPAY ==
[2024-01-17 10:12] VITALS: BP 114/72; BMI 28.8
[2025-07-28 13:27] VITALS: BP 122/74; PULSE 88; RESP 17; TEMP 36.8; O2SAT 93; BMI 25.0
--- NOTE | 2025-07-28 13:31 | ECG_ITS ---
[facility]: 2025-[facility]28 Pat Name: Martín Thorne Department: Room: Gender: Male Certified Scrum Master: : [id number] Requested By: Johnathan Burnham Order Number: [id number] Reading MD: CARMELA SAGE Measurements Intervals [place] Rate: 86 P: 62 NH: 183 QRS: 34 QRSD: 79 T: 46 QT: 318 QTc: 382 Interpretive Statements SINUS RHYTHM Compared to ECG 12/06/2020 17:40:50 No significant changes Electronically Signed On 07-29-2025 20:18:55 TRACK PRODUCTION ENGINEER by CARMELA SAGE [email or web address]
--- NOTE | 2025-07-28 13:54 | XR_ITS ---
WS: [id number] Chest 2 views, 07/28/2025 Clinical Data: cough, sob, right back pain Comparison: Portable chest, 12/14/2024 Findings: No nodules, masses or effusions are seen. The heart is normal. The pulmonary vascularity is not increased. No pneumonia or pneumothorax is seen. There is an old right midclavicular fracture. XR/XR chest 2V* [id number] Impression: Negative chest.
--- NOTE | 2025-07-28 13:58 | W.ED.EXTPRO ---
HPI - Extremity Problem General: Chief complaint: Extremity Problem,Nontraumatic Stated complaint: right shoulder/back pain Time Seen by Provider: 07/28/25 13:37 Source: patient Mode of arrival: ambulatory Limitations: no limitations History of Present Illness: Patient is a 60-year-old male who presents emergency department for evaluation of right back pain that he has had for greater than a month. Denies any trauma or strenuous activity as he states he is disabled. He states the pain has gotten to where he started to feel short of breath, he has also had an associated cough that is productive of sputum and he is worried of pneumonia. Denies any fever or chills, no nausea or vomiting. States his pain is reproducible to palpation however is also worsened when he coughs or takes deep breaths. There is no pain that is reproduced with movement of the right upper extremity. Denies any anterior chest pain. Denies history of COPD, he is an everyday smoker. MD Complaint: other (Right upper back pain) Onset (ago): month(s) (1) Pain Consistency: constant Exacerbating factors: palpation and other (Deep breathe/coughing) Associated symptoms: Deny chest pain, fever(s) or rash Related Data Home Medications ?Medication ?Instructions ?Recorded ?Confirmed clonazepam 0.5 mg tablet (Klonopin) 1 mg PO BID 01/09/24 06/25/24 gabapentin 600 mg tablet 600 mg PO TID 02/15/24 06/25/24 mirtazapine 30 mg tablet (Remeron) 30 mg PO BEDTIME depression 02/15/24 06/25/24 tamsulosin 0.4 mg capsule (Flomax) 0.4 mg PO BEDTIME 02/15/24 06/25/24 Previous Rx's ?Medication ?Instructions ?Recorded levothyroxine 75 mcg tablet 75 mcg PO QAM hypo thyroid #90 tabs 07/04/23 buprenorphine 8 mg-naloxone 2 mg 1 film sublingual BID #60 ea 02/13/24 sublingual film phenazopyridine 100 mg tablet 100 mg PO Q8H PRN pain #10 tabs 09/18/24 (Pyridium) sulfamethoxazole 800 1 tab PO BID #14 tabs 09/18/24 mg-trimethoprim 160 mg tablet (Bactrim DS) methocarbamol 750 mg tablet 750 mg PO Q6H PRN spasms #20 tabs 12/14/24 naproxen 500 mg tablet (Naprosyn) 500 mg PO BID PRN pain #20 tabs 12/14/24 azithromycin 500 mg tablet 500 mg PO DAILY 5 days #5 tabs 07/28/25 methocarbamol 750 mg tablet 750 mg PO Q8H 5 days #15 tabs 07/28/25 prednisone 20 mg tablet 60 mg (3 x 20 mg) PO ONCE 5 days 07/28/25 #15 tabs Allergies Allergy/AdvReac Type Severity Reaction Status Date / Time Penicillins Allergy Unknown Unknown Verified 12/14/24 14:24 haloperidol (From Haldol) Allergy Unknown Verified 12/14/24 14:24 ketorolac (From Toradol) Allergy Unknown Verified 12/14/24 14:24 Review of Systems General: Reports: 10 or more systems reviewed and unremarkable except in HPI and below Const: Denies: fever(s) or chills Card: Denies: chest pain Resp: Reports: dyspnea, productive cough and wheezing GI: Denies: abdominal pain, nausea, vomiting or diarrhea : Denies: flank pain Musc: Reports: back pain; Denies: neck pain, extremity pain, extremity swelling, joint pain, joint swelling, joint redness, joint warmth, limited range of motion or muscle weakness Skin/Breast: Denies: rash Neuro: Denies: headache(s), numbness in extremities or weakness in extremities PFSH ED PFSH: Medical History Shakiness Healthcare maintenance Severe benzodiazepine use disorder in sustained remission Dental caries History of hepatitis C High cholesterol Depression Anxiety Fatigue Hypothyroid Chronic leg pain Mechanical complication internal fixation device like nail, plate, jennifer Psychiatric care Pain due to dental caries Family History Father Bladder cancer Mother Leukemia Social History Smoking and tobacco/nicotine status: current every day tobacco/nicotine user Quit status (tobacco/nicotine): not considering quitting Second hand smoke exposure: No Alcohol intake: former Substance/Drug Use: former Adopted: No Caregiver/support person: No Lives independently: Yes Housing: Apartment Marital status: Number of children: 1 Number of grandchildren: 0 Highest education level completed: GED or Equivalent service: No Current occupational status: disabled Pets and animals: No Leisure activites: other Leisure activities details: work out and watch TV Sexually active: No Do you think of yourself as: Straight/Heterosexual Current gender identity: Male Estella/Synagogue: [employer] Special estella needs: No Agree to transfusion: Yes Physical Exam Const: COMMON NORMALS: no acute distress, patient oriented x3, no limitations, healthy appearing, alert and well nourished HENMT: COMMON NORMALS: normocephalic and atraumatic HEAD & SCALP: normocephalic and atraumatic Neck/C-Spine: COMMON NORMALS: full ROM, supple and no meningeal signs Resp: COMMON NORMALS: normal respiratory effort, No use of accessory muscles and clear to auscultation bilaterally AUSCULTATION: clear to auscultation bilaterally OTHER: No respiratory distress Cardio: COMMON NORMALS: regular rate and regular rhythm RATE: regular rate RHYTHM: regular rhythm Back/Pelvis: OTHER: Tender to palpation to right upper back Extremity: COMMON NORMALS: normal to inspection, full ROM, capillary refill normal, no joint enlargement and no clubbing, cyanosis or edema Neuro: COMMON NORMALS: patient oriented x3, moves all extremities, no focal motor deficits and no sensory deficits noted SENSORIUM/ORIENTATION: Yes alert MENINGEAL SIGNS: Yes no meningeal signs Skin: COMMON NORMALS: no rashes or lesions noted GENERAL SKIN EXAM: no rashes or lesions noted Course Vital Signs: Vital signs: Vital Signs Temperature 98.3 F 07/28/25 13:27 Pulse Rate 88 07/28/25 13:27 Respiratory Rate 17 07/28/25 13:27 Blood Pressure 122/74 07/28/25 13:27 Pulse Oximetry 93 07/28/25 13:27 Oxygen Delivery Me thod Room Air 07/28/25 13:27 MDM - Extremity (Nontraumatic) Medical Decision Making Patient presented for evaluation of right upper back pain for a month, he has also been having shortness of breath and coughing. Tender to palpation to right upper back on examination, no adventitious lung sounds or signs of respiratory distress. Overall nontoxic-appearing. His lab work was reassuring, x-ray negative for any infiltrate or fractures or any other abnormality. He has great improvement he reports after IM Decadron, Norflex, and Tylenol here in the emergency department. Will send prescriptions to pharmacy, suspect element of costochondritis possible acute bronchitis with his productive cough, but overall he is stable for discharge home will start on azithromycin, with prednisone taper sent to pharmacy and also x-rays. Lab Data 07/28/25 14:20 07/28/25 14:20 Radiology Impressions Chest X-Ray 07/28/25 13:54 Impression: Negative chest. Laboratory Results WBC 5.46 10^3/uL (3.29-11.43) 07/28/25 14:20 RBC 4.42 10^6/uL (3.85-5.65) 07/28/25 14:20 Hgb 14.20 g/dL (11.27-16.99) 07/28/25 14:20 Hct 41.7 % (37-53) 07/28/25 14:20 MCV 94.3 fl (82-101) 07/28/25 14:20 MCH 32.1 pg (27-33) 07/28/25 14:20 MCHC 34.1 g/dL (30-55) 07/28/25 14:20 RDW 13.1 % (12.1-15.1) 07/28/25 14:20 Plt Count 162 10^3/cmm (157-399) 07/28/25 14:20 MPV 10.0 fL (7.4-10.4) 07/28/25 14:20 Neut % (Auto) 57.6 % 07/28/25 14:20 Lymph % (Auto) 28.2 % 07/28/25 14:20 [place]ois % (Auto) 12.6 % 07/28/25 14:20 Eos % (Auto) 0.7 % 07/28/25 14:20 Baso % (Auto) 0.5 % 07/28/25 14:20 Neut # (Auto) 3.14 10^3/uL (1.8-7.7) 07/28/25 14:20 Lymph # (Auto) 1.5 10^3/uL (0.8-4.8) 07/28/25 14:20 [place]ois # (Auto) 0.7 10^3/uL (0.2-0.9) 07/28/25 14:20 Eos # (Auto) 0.0 10^3/uL (0.0-0.8) 07/28/25 14:20 Baso # (Auto) 0.0 10^3/uL (0.0-0.1) 07/28/25 14:20 Nucleated RBC % (auto) 0 % 07/28/25 14:20 Nucleated RBCs # 0.0 /100WBC 07/28/25 14:20 Sodium 140 mmol/L (136-145) 07/28/25 14:20 Potassium 4.3 mmol/L (3.5-5.1) 07/28/25 14:20 Chloride 105 mmol/L (98-107) 07/28/25 14:20 Carbon Dioxide 28 mmol/L (22-29) 07/28/25 14:20 Anion Gap 11.3 (5-19) 07/28/25 14:20 BUN 10 mg/dL (8-23) 07/28/25 14:20 Creatinine 0.8 mg/dL (0.7-1.2) 07/28/25 14:20 GFR Calculation 98.0 mL/min (90-130) 07/28/25 14:20 Glucose 84 mg/dL (65-115) 07/28/25 14:20 Calculated Osmolality 288 mOsm/kg (285-295) 07/28/25 14:20 Calcium 8.7 mg/dL (8.5-10.5) 07/28/25 14:20 Total Bilirubin 0.2 mg/dL (0.15-1.2) 07/28/25 14:20 AST 20 U/L (0-40) 07/28/25 14:20 ALT 17 U/L (0-41) 07/28/25 14:20 Alkaline Phosphatase 94 U/L (40-130) 07/28/25 14:20 Total Protein 6.6 g/dL (6.6-8.7) 07/28/25 14:20 Albumin 3.9 g/dL (3.5-5.2) 07/28/25 14:20 Globulin 2.7 g/dL (1.3-4.6) 07/28/25 14:20 All radiology interpretation(s) finalized by discharge Discharge Plan Discharge Patient Disposition: Home Clinical Impression: Acute bronchitis, Acute costochondritis Condition: Stable Prescriptions: New prednisone 20 mg tablet 60 mg PO ONCE 5 Days Qty: 15 0RF methocarbamol 750 mg tablet 750 mg PO Q8H 5 Days Qty: 15 0RF azithromycin 500 mg tablet 500 mg PO DAILY 5 Days Qty: 5 0RF No Action clonazepam [Klonopin] 0.5 mg tablet 1 mg PO BID levothyroxine 75 mcg tablet 75 mcg PO QAM Qty: 90 3RF buprenorphine-naloxone 8-2 mg film 1 film sublingual BID Qty: 60 2RF gabapentin 600 mg tablet 600 mg PO TID tamsulosin [Flomax] 0.4 mg capsule 0.4 mg PO BEDTIME mirtazapine [Remeron] 30 mg tablet 30 mg PO BEDTIME sulfamethoxazole-trimethoprim [Bactrim DS] 800-160 mg tablet 1 tab PO BID Qty: 14 0RF phenazopyridine [Pyridium] 100 mg tablet 100 mg PO Q8H PRN (Reason: pain) Qty: 10 0RF methocarbamol 750 mg tablet 750 mg PO Q6H PRN (Reason: spasms) Qty: 20 0RF naproxen [Naprosyn] 500 mg tablet 500 mg PO BID PRN (Reason: pain) Qty: 20 0RF Discharge Orders: Discharge ED (Routine); Ordered 07/28/25 Ordered By: Vinnie Burgos Referrals: Carlie López MD [Primary Care Provider, Family Practice] Patient Instructions: Patient Portal & [place] Instructions Activity Restrictions/Additional Instructions: Discharge Instructions Your Diagnosis You have been diagnosed with two conditions: - Acute costochondritis: inflammation of the cartilage connecting your ribs to your breastbone, causing chest wall pain - Acute bronchitis: inflammation of the airways in your lungs, causing cough Your chest X-ray showed no signs of pneumonia or other serious lung problems, and your blood work was reassuring. Your Medications Take all medications as prescribed: - Azithromycin: Take as directed to treat possible bacterial infection - Prednisone: Take with food to reduce inflammation. Do not stop this medication suddenly - Methocarbamol (Robaxin): Take as directed for muscle relaxation and pain relief. This may cause drowsiness?do not drive or operate machinery until you know how it affects you Managing Your Costochondritis Your chest wall pain should improve over the next few weeks with treatment: - Apply heat to the painful area for 15-20 minutes several times daily - Avoid activities that make your pain worse, such as heavy lifting or strenuous upper body exercise - Take [id number] pain relievers like ibuprofen or naproxen if needed and not contraindicated by your doctor - Rest from activities that strain your chest muscles Most people recover completely within a few weeks with conservative treatment. Managing Your Bronchitis Your cough may last up to three weeks, which is normal for bronchitis: - Get plenty of rest and stay well-hydrated - Use a humidifier to help loosen mucus - [id number] cough suppressants or expectorants may provide some relief - Avoid smoke and other lung irritants When to Seek Medical Attention Return to the emergency department or call your doctor if you develop: - Worsening chest pain or new chest pain that feels different - Shortness of breath or difficulty breathing - Fever above 100.4?F (38?C) that persists or returns - Cough that worsens or produces bloody sputum - Symptoms that do not improve after one week or worsen despite treatment - Severe side effects from your medications (severe rash, difficulty breathing, severe stomach pain) Follow-Up Care - Schedule a follow-up appointment with your primary care doctor in 1-2 weeks - If your symptoms have not improved significantly after 2-3 weeks, contact your doctor for reassessment Important Reminders - Complete the full course of azithromycin even if you feel better - Do not share your medications with others - Costochondritis pain can sometimes be confused with heart problems?if you have any concerns about new or different chest pain, seek immediate medical attention Print Language: [place] Coding Level of Care Code ED Photographic Engineer for Shannan Shelton
[2025-07-28] MEDS: orphenadrine 30 mg/mL Inj 2 mL 60 MG IM (14:35)
[2025-07-28 14:36] LABS: Hematocrit 41.7 % (37-53); Hemoglobin 14.20 g/dL (11.27-16.99); Mean Corpuscular HGB Conc 34.1 g/dL (30-55); Mean Corpuscular Hemoglobin 32.1 pg (27-33); Mean Corpuscular Volume 94.3 fl (82-101); Nucleated Red Blood Cells % 0 %; Platelet Count 162 10^3/cmm (157-399); Red Blood Count 4.42 10^6/uL (3.85-5.65); White Blood Count 5.46 10^3/uL (3.29-11.43)
[2025-07-28 14:55] LABS: Alanine Aminotransferase 17 U/L (0-41); Albumin Level 3.9 g/dL (3.5-5.2); Alkaline Phosphatase 94 U/L (40-130); Anion Gap 11.3 (5-19); Aspartate Amino Transferase 20 U/L (0-40); Blood Urea Nitrogen 10 mg/dL (8-23); Calcium 8.7 mg/dL (8.5-10.5); Carbon Dioxide 28 mmol/L (22-29); Chloride 105 mmol/L (98-107); Globulin 2.7 g/dL (1.3-4.6); Glucose 84 mg/dL (65-115); Osmolality Calculated 288 mOsm/kg (285-295); Potassium 4.3 mmol/L (3.5-5.1); Sodium 140 mmol/L (136-145); Total Protein 6.6 g/dL (6.6-8.7)
[2025-07-28 15:12] VITALS: BP 148/76; PULSE 76; RESP 16; O2SAT 98
== END 2025-07-28 15:13 | disposition home or self-care (01) ==
PROVIDERS: Emergency Provider Physician Assistant; PCP Family Medicine
DX: J20.9 Acute bronchitis, unspecified (principal); M94.0 Chondrocostal junction syndrome [Tietze]; F17.210 Nicotine dependence, cigarettes, uncomplicated
CPT/HCPCS: 36415; 71046; 80053; 85025; 93005; 96372; 99285; J1100; J2360; J9999